=== PATIENT | male | born 1950 | race Caucasian/White ===

== ENCOUNTER 2016-07-17 18:30 | Inpatient (IN) ==
--- NOTE | 2016-07-17 19:02 | PROVIDER DOCUMENTATION ---
HPI-General Adult - General Chief Complaint: Shortness of Breath Stated Complaint: COUGH, CONGESTION Time Seen by Provider: 07/17/16 19:00 Source: patient Allergies/Adverse Reactions: Patient Allergies Allergy/AdvReac Type Severity Reaction Status Date / Time morphine Allergy Severe Hallucinati Verified 06/23/16 13:18 ons aspirin Allergy ABDOMINAL Verified 06/23/16 13:18 PAIN Home Medications: Esomeprazole [Nexium] 40 mg PO DAILY 02/01/16 Mirtazapine 15 mg PO DAILY 02/01/16 Thiamine Mononitrate [Vitamin B-1] 100 mg PO DAILY 02/01/16 Trazodone [Desyrel] 50 mg PO QHS 02/01/16 Dronedarone HCl [Multaq] 400 mg PO DAILY 05/29/16 Hydrocodone/Acetaminophen [[place] 10-325 Tablet] 1 each PO Q4H PRN PRN 06/23/16 - History of Present Illness -Gen Adult Nature of Presenting Problems: 65 y/o m presents to the ed with SOB. per pt he has been sob all day. pt has hx of multiple respiratory issues. pt does have stage 4 lung CA and had a chemo treatment X 9 days ago. pt also reports he has had a cough with excessive sputum. pt denies any dizziness/headache. Quality of Pain: reports: none Severity: reports: mild Timing: reports: still present Associated Symptoms: reports: shortness of breath Similar Symptoms Previously?: No Recently seen or treated by another doctor?: No Review of Systems - Adult - REVIEW OF SYSTEMS - ADULT Constitutional: denies: chills, fever Respiratory: reports: cough, dyspnea on exertion, excessive sputum production, shortness of breath, wheezing. denies: chronic cough, hemoptysis Neurological: denies: dizziness/vertigo, headache/migraines Past History - Adult - PAST MEDICAL HISTORY-ADULT Review of Records: reports: Old Records Reviewed, Nursing Assessment Review, Medications Reviewed Major Childhood Illnesses: reports: denies history Cardiovascular: reports: CAD, HTN, [place] Respiratory: reports: asthma, COPD, cancer (adenocarcinoma of the lung, stage IV ) Gastrointestinal: reports: GERD Genitourinary: reports: denies history Musculoskeletal: reports: denies history Neurological: reports: CVA. denies: stroke deficits Endocrine/Immune: reports: denies history Other Conditions: reports: denies history - PRIOR SURGERIES/PROCEDURES Surgical/Procedure History: reports: appendectomy, cholecystectomy, indwelling device (picc, PEG), hernia repair, back/neck - IMMUNIZATION STATUS Childhood Immunizations: See Nurse Assessment Flu Vaccine: See Nurse Assessment - FAMILY HISTORY Family History: reviewed, not pertinent - SOCIAL HISTORY Smoking: greater than 1 pack/day Substance Use: none/never Alcohol Use Frequency: never Physical Exam-General - PHYSICAL EXAM-ADULT Initial Vital Signs Reviewed: Yes - CONSTITUTIONAL General Appearance: alert, no apparent distress - EYES Eyes: PERRL/EOMI, pink conjunctivae, fundi clear, no AV nicking - HEAD, EARS, NOSE, MOUTH & THROAT HENMT: normocephalic/atraumatic, moist mucous membranes, normal ENT inspection - NECK Neck: non-tender, full range of motion, supple - RESPIRATORY Respiratory: chest non-tender, decreased breath sounds (bi-lateral), wheezing - CARDIOVASCULAR Cardiovascular: normal peripheral pulses, regular rate, rhythm - GASTROINTESTINAL (ABDOMEN) Abdominal Exam: normal bowel sounds, non tender, soft - LYMPHATIC Lymphatic: no adenopathy - MUSCULOSKELETAL Back Exam: normal inspection - SKIN Integumentary: normal color, normal turgor, warm/dry - PSYCHIATRIC Psych/Mental Status: normal mood/affect, normal thought content, normal thought process, oriented x 3 Progress - PLAN OF CARE/RESULTS Progress/Plan/Lab Results: plan of care: labs, imaging Laboratory Tests 07/17/16 07/17/16 07/17/16 19:14 19:25 19:25 WBC 2.58 L RBC 2.60 L Hgb 8.4 L Hct 25.2 L MCV 96.9 MCH 32.3 H MCHC 33.3 RDW Std Deviation 13.4 Plt Count 162 MPV 9.8 Immature Gran % (Auto) 0.0 Neut % (Auto) 58.9 Lymph % (Auto) 26.0 [place] % (Auto) 12.4 H Eos % (Auto) 1.9 Baso % (Auto) 0.8 Immature Gran # (Auto) 0.00 Neut # (Auto) 1.52 Lymph # (Auto) 0.67 L [place]eman # (Auto) 0.32 Eos # (Auto) 0.05 Baso # (Auto) 0.02 Specimen Type ARTERIAL Sample Site R BRACHIAL pH 7.44 pCO2 34 L pO2 107 H HCO3 24.3 Base Excess -0.8 Oxyhemoglobin 94.8 L ABG O2 Sat (Calculated) 11.5 L ABG O2 Saturation 99.2 ABG Carboxyhemoglobin 2.10 ABG Methemoglobin 2.2 H Don Test YES A-a O2 Difference 50.0 Total Hemoglobin 8.5 L Lactate 0.80 Liter Flow 2.0 Blood Gas Modality CANNULA FiO2 % 28.0 Sodium Potassium Chloride Carbon Dioxide Anion Gap BUN Creatinine Estimated GFR/1.73 m2 BUN/Creatinine Ratio Glucose Calculated Osmolality Calcium Total Bilirubin AST ALT Alkaline Phosphatase Total Protein Albumin Globulin Albumin/Globulin Ratio Plasma Lactate 1.0 07/17/16 20:46 WBC RBC Hgb Hct MCV MCH MCHC RDW Std Deviation Plt Count MPV Immature Gran % (Auto) Neut % (Auto) Lymph % (Auto) [place] % (Auto) Eos % (Auto) Baso % (Auto) Immature Gran # (Auto) Neut # (Auto) Lymph # (Auto) [place]eman # (Auto) Eos # (Auto) Baso # (Auto) Specimen Type Sample Site pH pCO2 pO2 HCO3 Base Excess Oxyhemoglobin ABG O2 Sat (Calculated) ABG O2 Saturation ABG Carboxyhemoglobin ABG Methemoglobin Don Test A-a O2 Difference Total Hemoglobin Lactate Liter Flow Blood Gas Modality FiO2 % Sodium 135 L Potassium 4.0 Chloride 100 Carbon Dioxide 23 L Anion Gap 12 BUN 23 H Creatinine 0.8 Estimated GFR/1.73 m2 > 60 BUN/Creatinine Ratio 29 Glucose 110 H Calculated Osmolality 274 Calcium 8.1 L Total Bilirubin 0.32 AST 26 ALT 34 Alkaline Phosphatase 60 Total Protein 5.9 L Albumin 3.2 L Globulin 2.7 Albumin/Globulin Ratio 1.2 Plasma Lactate Orders Category Date Time Status Intake and Output-Strict ORDERED Care 07/17/16 19:13 Active Notify MD/SHAHRZAD/REZA for exam NOW Care 07/17/16 19:13 Active Repeat Vital Signs .Blood Pressure Care 07/17/16 19:13 Active Repeat Vital Signs .Heart Rate Care 07/17/16 19:13 Active Repeat Vital Signs .Oxygen Saturation Care 07/17/16 19:13 Active Repeat Vital Signs .Respiratory Rate Care 07/17/16 19:13 Active Repeat Vital Signs .Temp Care 07/17/16 19:13 Active CHEST-PORTABLE [RAD] Stat Exams 07/17/16 20:34 Taken ABG [RESP] Routine Lab 07/17/16 19:14 Completed BLOOD CULTURE [BLDCUL] Stat Lab 07/17/16 19:28 Results CBC WITH ELECTRONIC DIFF [HEME] Stat Lab 07/17/16 19:25 Completed CMP [COMPREHENSIVE METABOLIC PANEL] [CHEM] Stat Lab 07/17/16 20:46 Completed LACTATE, PLASMA [CHEM] Timed Lab 07/17/16 19:25 Completed 0.9% Sodium Chloride Inj [Ns] 1,000 ml Med 07/17/16 19:12 Discontinued IV 999 mls/hr 0.9% Sodium Chloride Inj [Ns] 1,000 ml Med 07/17/16 19:12 Discontinued IV As Directed 0.9% Sodium Chloride Inj [Ns] 500 ml Med 07/17/16 19:15 Active IV 999 mls/hr Vital Signs - 24 hr 07/17/16 18:40 Temperature 98.7 F Pulse Rate 53 L Respiratory 20 Rate Blood Pressure 102/72 O2 Sat by Pulse 53 L Oximetry - EKG 1 Time of EKG reading by physician:: 19:28 EKG Read and Signed by:: Wale Lazcano Rate: 85 Rhythm: sinus rhythm w/marked sinus arrythmia - XRAY 1 XRAY Study: Chest XRAY Interpretation: no significate changes from prior - CONSULTS/PCP/HOSPITALIST Notification #1 *Consult/PCP/Hospitalist*: Dr. Hopkins Time Discussed: 22:20 Consult Disposition: other (transfer to [facility]) Departure - Departure Time of Disposition Order: 22:13 DIAGNOSIS: Symptomatic anemia Lung cancer Qualifiers: Laterality: unspecified laterality Lung location: unspecified part of lung Qualified Code(s): C34.90 - Malignant neoplasm of unspecified part of unspecified bronchus or lung COPD (chronic obstructive pulmonary disease) Qualifiers: COPD type: unspecified COPD Qualified Code(s): J44.9 - Chronic obstructive pulmonary disease, unspecified Disposition: ADMITTED INPATIENT 09 Certified Medical Emergency: Emergent Condition: Stable Additional Instructions: ED Follow Up Instructions: You have been treated by a care provider in the Emergency Department. These instructions are being provided to you so you can have an understanding of how to care for yourself upon discharge. Upon discharge from the Emergency Department, you are responsible for making arrangements for follow-up care by a physician of your choice. Take all prescribed medications as directed. Return to the Emergency Department immediately for any new or worsening symptoms. You may call the Physician Referral phone number at [phone] to obtain a list of Physicians who are taking new patients. Referrals: None,PCP [Primary Care Provider] -
[2016-07-17] MEDS ORDERED: NS 1,000 ML IV ONE ×2 (19:12)
[2016-07-17 20:06] LABS: ALLEN TEST YES; BE -0.8 mmoll (-3.0-3.0); BLOOD TYPE ARTERIAL; DRAW SITE R BRACHIAL; METHB 2.2 % (0.0-1.5); O2(CT) 11.5 mL/dL (15.0-23.0); PCO2(98.6) 34 mmHg (35-45); PO2(98.6) 107 mmHg (60-100); SAMPLE BLOOD; SAO2 99.2 % (95.0-100.0); THB 8.5 g/dL (11.5-17.4); pH(98.6) 7.44 (7.35-7.45)
[2016-07-17 20:56] LABS: MODALITY CANNULA
[2016-07-17 20:59] LABS: BASO% 0.8 % (0.0-0.8); EOS# 0.05 X1000 (0.0-0.7); EOS% 1.9 % (0.0-10.0); HEMATOCRIT 25.2 % (42.0-52.0); HEMOGLOBIN 8.4 g/dL (14.0-18.0); LYMPH# 0.67 X1000 (1.2-3.4); MANUAL DIFF NEEDED? NO; MCH 32.3 PG (27-31); MCHC 33.3 g/dL (33-37); MCV 96.9 FL (81-99); MONO# 0.32 X1000 (0.11-0.59); MONO% 12.4 % (1.7-9.3); MPV 9.8 FL (7.4-10.4); NEUT% 58.9 % (42.2-75.2); PLT 162 X1000 (130-400)
[2016-07-17 21:31] LABS: AGAP 12; ALBUMIN 3.2 g/dL (3.5-5.0); ALKALINE PHOSPHATASE 60 U/L (32-122); BUN 23 mg/dL (8-22); CALCIUM 8.1 mg/dL (8.8-10.2); CHLORIDE 100 mmol/L (98-107); COSMO 274; GOT 26 U/L (10-34); GPT 34 U/L (10-44); SODIUM 135 mmol/L (136-145); TCO2 23 mmol/L (25-35); TOTAL BILIRUBIN 0.32 mg/dL (0.20-1.00); TOTAL PROTEIN 5.9 g/dL (6.3-8.3)
[2016-07-17] MEDS ORDERED: ZOFRAN IV PRN (23:01)
[2016-07-17] MEDS ORDERED: TYLENOL PO PRN (23:01)
[2016-07-17] MEDS ORDERED: DUONEB (A & A) INH PRN (23:01)
--- NOTE | 2016-07-17 23:42 | Diag Imaging Result Document ---
PROCEDURE NAME: CHEST-PORTABLE - 07/17/2016 SINGLE FRONTAL RADIOGRAPH OF THE CHEST: COMPARISON: 06/23/2016. FINDINGS: Right chest port is in stable position. There are increased interstitial markings throughout both lungs with a basilar predominance. This is actually very similar to the previous study. This probably represents a combination of mild interstitial edema and chronic interstitial fibrotic change. The lungs are clear otherwise. There is no definite pleural fluid collection identified. The lung apices are hyperlucent suggesting COPD, stable. Cardiac silhouette is unremarkable. IMPRESSION: Thickened interstitial markings very similar to the previous study as detailed above.
[2016-07-18] MEDS: NS 500 ML IV SCH ×5 (03:22→04:39)
[2016-07-18] MEDS ORDERED: BENADRYL IV ONE (03:23)
[2016-07-18] MEDS ORDERED: NS 1,000 ML ONE ×2 (03:41→18:05)
--- NOTE | 2016-07-18 05:11 | HISTORY AND PHYSICAL ---
CHIEF COMPLAINT: Worsening shortness of breath. HISTORY OF PRESENT ILLNESS: A 65-year-old, white male with stage IV lung cancer status post chemotherapy for 9 days, last day last . He also has advanced COPD and chronic pain. He presented to the ER complaining of worsening weakness, shortness of breath. Evaluated in the ER by Dr. Lazcano. His hemoglobin and hematocrit are now low, as well as his platelets, likely related to chemotherapy induced anemia. He has ordered to transfuse 2 units of packed red blood cells. Patient says he has a chronic cough productive of whitish sputum, though seems to be chronic. No fevers. No chills. He takes pain medications, breathing treatments. No home oxygen. He does not smoke anymore. Pleasant elder. Poor historian. History of present illness extended by son at bedside. Says patient has been more short of breath. Other than that, he feels pretty much at his baseline. His oncologist is Dr. Mendez, desktop support technician/oncologist. REVIEW OF SYSTEMS: No fevers. No chills. Positive fatigue. No double vision. No coryza. No rhinorrhea. No sore throat. Positive shortness of breath. Positive productive cough, whitish sputum. No chest pain. No palpitations. No worsening distal edema. No nausea , vomiting, or diarrhea. No hesitancy, urinary retention, or diminished output. No seizures or syncope. On chemotherapy, under care of desktop support technician/oncologist. No recurring infections. No reaction to anything recently. No change in medications. REVIEW OF SYSTEMS: Fourteen point review of systems as above. Other systems reviewed and otherwise negative. PAST MEDICAL HISTORY: Coronary artery disease, hypertension, history of [place], adenocarcinoma of the lung stage IV, COPD, old CVA without deficits. HOME MEDICATIONS: Nexium 40 mg p.o. daily, mirtazapine 50 mg p.o. daily, vitamin B1 100 mg p.o. daily, trazodone 50 mg p.o. at night, Multaq 400 mg p.o. daily, [place] 10/325 p.o. q.4 as needed. ALLERGIES: To morphine and aspirin. PAST SURGICAL HISTORY: Appendectomy, cholecystectomy, indwelling device, PICC line, PEG, hernia repair, and back and neck surgeries. FAMILY HISTORY: Hypertension. SOCIAL HISTORY: He was smoking up to 4 packs a day at the time but he quit a long time ago. No alcohol. No drugs. Lives with son at home. PHYSICAL EXAMINATION: GENERAL: Frail, elder, pale. Seems tired. VITAL SIGNS: Temperature 98.7 degrees, pulse 53, respiratory rate 20, blood pressure 102/72, saturating 53 on oxygen by nasal cannula that increased to 95. HEENT: The head is atraumatic and normocephalic. Pupils are reactive to light. Pale mucous membranes. Throat: No thrush. Mouth clear. NECK: No JVD. LUNGS: Scattered rhonchi. Prolonged expiratory phase. No crackles. No crepitus. HEART: S1, S2 present. Regular rate and rhythm. No murmurs, rubs, or gallops. ABDOMEN: Soft, nontender, nondistended. EXTREMITIES: No distal edema. No calf tenderness. NEUROLOGIC: Pleasant, elder. Muscle strength 5/5 in 4 limbs. Clear speech. Follows commands. PSYCHIATRIC: Proper. DIAGNOSTIC DATA: Chest x-ray shows thickened interstitial markings, very similar to prior study. No acute changes. LABS: White blood cell count of 2.58, with a hemoglobin of 8.4, hematocrit of 25.2, and platelets of 162,000. PH of 7.44, pCO2 34, PO2 107, bicarb 24.3, base excess of -0.8, oxyhemoglobin 94.8. Chemistry shows a sodium of 135, potassium of 4, chloride of 100, carbon dioxide 23, anion gap 12, BUN 23, creatinine 0.8, glucose 110, calculated osmolality 274, calcium 8.1. Total bilirubin 0.32, AST 26, ALT 34, alkaline phosphatase 60, total protein 5.9, albumin 3.2, globulin 2.7, plasma lactate 1. APPRECIATION AND PLAN: 1. Acute and symptomatic chemotherapy-induced anemia. 2. Advanced chronic obstructive pulmonary disease. 3. Stage IV lung cancer. 4. Other diagnoses: Hypotension, ex heavy smoker, coronary artery disease, history of myocardial infarction, old cerebrovascular accident with no significant sequela, gastroesophageal reflux disease. DISCUSSION: This is a middle-age, white male, older looking appearing with stage IV lung cancer. Had recent chemotherapy and now presents to ER with worsening shortness of breath. His baseline seems unchanged regarding his productive cough with whitish sputum and though he manifests worsening shortness of breath. Labs discussed with ER attending and I agree with need for transfusion of packed red blood cells secondary to symptomatic anemia, likely chemotherapy induced. Patient has denied any gross GI bleed. I discussed case with Dr. Mirza at [facility] [facility] that will accept transfer due to bed availability. We will use mechanical DVT prophylaxis secondary to severe symptomatic anemia, high risk for bleed and falls. We will continue also with breathing treatments as needed. He has been mckeon-cultured and we will follow up on this. He does not impress septic. His pressure is borderline low. I believe he needs blood and volume. For now, there is no reason to start IV antibiotics though. Rest of plan of care as per clinical development. MTDD
[2016-07-18] MEDS: VITAMIN B-1 PO SCH (08:49)
[2016-07-18] MEDS: NEXIUM PO SCH (08:49)
[2016-07-18] MEDS: MULTAQ PO SCH (08:49)
[2016-07-18] MEDS: REMERON PO SCH (08:51)
[2016-07-18 10:24] LABS: BASO% 0.8 % (0.0-0.8); EOS# 0.07 X1000 (0.0-0.7); EOS% 2.7 % (0.0-10.0); HEMATOCRIT 27.6 % (42.0-52.0); HEMOGLOBIN 9.3 g/dL (14.0-18.0); IMM GRAN# 0.01 X1000 (0.0-0.04); IMM GRAN% 0.4 % (0.0-0.5); LYMPH# 0.69 X1000 (1.2-3.4); LYMPH% 26.3 % (20.5-51.1); MANUAL DIFF NEEDED? YES; MCH 32.6 PG (27-31); MCHC 33.7 g/dL (33-37); MCV 96.8 FL (81-99); MONO% 15.3 % (1.7-9.3); MPV 8.8 FL (7.4-10.4); NEUT% 54.5 % (42.2-75.2); PLT 135 X1000 (130-400); RBC 2.85 XMIL (4.7-6.1)
[2016-07-18 10:36] LABS: AGAP 8; BUN 20 mg/dL (8-22); CHLORIDE 101 mmol/L (98-107); COSMO 271; SODIUM 134 mmol/L (136-145); TCO2 25 mmol/L (25-35)
[2016-07-18 12:16] LABS: LYMPHS 36 % (21-51); MONO 16 % (1-9)
[2016-07-18] MEDS: NORCO-10 PO PRN ×2 (14:29→22:29)
--- NOTE | 2016-07-18 15:48 | PROGRESS NOTE ---
DATE: 07/18/2016 SUBJECTIVE: The patient has no focal complaints. OBJECTIVE: Vital signs: Blood pressure 93/59, heart rate is 68, respiratory rate 18, temperature 97.9 degrees, 100% on 3 L. Cardiovascular: Regular rate and rhythm. Pulmonary: Bilateral breath sounds. Clear to auscultation. GI: Soft, nontender, nondistended. Bowel sounds are positive. Extremities: No clubbing or cyanosis. Lymphatics: No peripheral edema. LABORATORY DATA: White count 2.6, hemoglobin and hematocrit 9 and 27 after transfusion, platelets of 135,000. Chemistry is pretty much unremarkable. Sodium a little low at 134. PROBLEM LIST: 1. Symptomatic anemia. He does have coronary artery disease which I think we are going to have a higher threshold for keeping his hemoglobin and hematocrit closer to 10 and 30, but we will continue to follow. Two units of blood were ordered but I think only 1 was given. We will follow. I am going to monitor. I think at this point I am not going to give him anymore blood. 2. Putative infection. There was some concern over sepsis because he is hypotensive but I think that may be more related to just dehydration. He is having significant diarrhea. We will screen for C. difficile and follow. It is likely chemotherapy-induced diarrhea. Continue to follow very closely. I think Dr. Mendez has been consulted, actually not; not put in even though they talked to the physician last night. We will let the patient know or let Dr. Mendez or team know the patient is here. 3. Atrial fibrillation. Appears to be controlled. I am going to continue his Multaq alone and we will follow. Obviously hold any anticoagulation. We will Hemoccult his stool and monitor. Possible discharge in the next 1-2 days pending workup.
[2016-07-18] MEDS: DESYREL PO SCH (20:20)
[2016-07-18] MEDS: DUONEB (A & A) INH SCH ×3 (23:29→23:30)
[2016-07-19] MEDS: DUONEB (A & A) INH SCH ×4 (04:16→21:20)
--- NOTE | 2016-07-19 06:25 | EKG Report ---
Test Performed on : 07/17/2016 6:38:27 PM Test Reason : done in ED/No order in [employer] Blood Pressure : / mmHG Vent. Rate : 085 BPM Atrial Rate : 096 BPM P-R Int : 122 ms QRS Dur : 076 ms QT Int : 354 ms P-R-T Axes : 082 078 077 degrees QTc Int : 421 ms Sinus rhythm. with marked sinus arrhythmia. Otherwise normal ECG When compared with ECG of 29-MAY-2016 21:04, No significant change was found Unconfirmed Result
[2016-07-19 07:07] LABS: HEMOGLOBIN 9.2 g/dL (14.0-18.0); MCH 31.3 PG (27-31); MCHC 32.9 g/dL (33-37); MCV 95.2 FL (81-99); MPV 9.6 FL (7.4-10.4); RBC 2.94 XMIL (4.7-6.1)
[2016-07-19] MEDS: REMERON PO SCH (10:39)
[2016-07-19] MEDS: VITAMIN B-1 PO SCH (10:39)
[2016-07-19] MEDS: MULTAQ PO SCH (10:40)
[2016-07-19] MEDS: NEXIUM PO SCH (10:40)
[2016-07-19] MEDS: TESSALON PO PRN (13:12)
--- NOTE | 2016-07-19 14:10 | Diag Imaging Result Document ---
PROCEDURE NAME: CHEST-2 VIEWS - 07/19/2016 FRONTAL AND LATERAL CHEST, TWO VIEWS: COMPARISON: 07/17/2016. FINDINGS: No change in the right jugular line. No pneumothorax. There are increased interstitial markings in the mid and lower lungs likely representing a combination of fibrosis and underlying infiltrates. The heart is not enlarged. Increased AP diameter to the chest. No pleural effusions. IMPRESSION: 1. Emphysema. 2. Fibrosis. 3. Likely underlying infiltrates in the lung bases, particularly on the left.
[2016-07-19] MEDS ORDERED: LASIX IV ONE (14:12)
[2016-07-19 14:38] LABS: OCCULT BLOOD 1 NEGATIVE (NEGATIVE)
[2016-07-19 14:57] LABS: C DIFF ANTIGEN PL NEGATIVE (NEGATIVE); C DIFF TOXIN PL NEGATIVE (NEGATIVE)
--- NOTE | 2016-07-19 14:58 | PROGRESS NOTE ---
DATE: 07/19/2016 SUBJECTIVE: The patient complains of a nonproductive cough. He denies any chest pain, palpitations, or shortness of breath. OBJECTIVE: Vital Signs: Blood pressure is 102/63, with a heart rate of 85, respirations are 16, temperature is 98.1 degrees oral, with O2 saturations of 98-100% on 2 L nasal cannula. Cardiovascular: Regular rate and rhythm. S1 and S2 appreciated. Pulmonary: He has some wheezes scattered throughout with no increased work of breathing noted. Gastrointestinal: Abdomen is soft, nontender, nondistended with bowel sounds in all 4 quadrants. Extremities: No clubbing, cyanosis, or edema. Pulses are palpable x4. Calves are nontender. LABS: WBC is 2.18, with a hemoglobin of 9.2, hematocrit 28, platelets of 142,000. PROBLEM LIST: 1. Symptomatic anemia. Patient received 2 units of packed cells. Hemoglobin and hematocrit are stable, as stated above. Will continue to trend daily. 2. Diarrhea. The patient has significant chemotherapy-induced diarrhea. Dr. Mendez did call with an update on the patient. She did state that this has been chronic for quite some time and that the patient is noncompliant in taking his Lomotil or Imodium. She states that this has been worked up multiple times on an outpatient basis, having negative studies and negative for Clostridium difficile each time. This is controlled when he will take his medications. We will continue to follow. 3. Atrial fibrillation. The patient has been in sinus rhythm. We are continuing his Multaq. 4. Questionable fluid overload versus infiltrates. The patient did receive the 2 units of blood and he did begin to wheeze and he developed a cough. PA and lateral chest x-ray was taken, which per radiology read reveals likely underlying infiltrates in the lung bases, particularly on the left. Will give 40 of Lasix IV x1 as this is most likely fluid overload. We will trend labs in the morning and reassess. Dictated by REZA Warren for Joshua Mirza MD
[2016-07-19] MEDS: DESYREL PO SCH (21:46)
[2016-07-20] MEDS: DUONEB (A & A) INH SCH ×4 (03:23→21:54)
[2016-07-20] MEDS: NEXIUM PO SCH (06:22)
[2016-07-20 06:49] LABS: HEMATOCRIT 29.1 % (42.0-52.0); HEMOGLOBIN 9.7 g/dL (14.0-18.0); MCH 31.6 PG (27-31); MCHC 33.3 g/dL (33-37); MCV 94.8 FL (81-99); MPV 9.6 FL (7.4-10.4); RBC 3.07 XMIL (4.7-6.1)
[2016-07-20 07:21] LABS: AGAP 7; BUN 11 mg/dL (8-22); CALCIUM 8.5 mg/dL (8.8-10.2); CHLORIDE 101 mmol/L (98-107); COSMO 269; POTASSIUM 3.6 mmol/L (3.5-5.1); SODIUM 135 mmol/L (136-145); TCO2 27 mmol/L (25-35)
[2016-07-20] MEDS: REMERON PO SCH (08:24)
[2016-07-20] MEDS: VITAMIN B-1 PO SCH (08:24)
[2016-07-20] MEDS: MULTAQ PO SCH (08:24)
--- NOTE | 2016-07-20 17:14 | PROGRESS NOTE ---
DATE: 07/20/2016 SUBJECTIVE: The patient states his cough is better. He denies any chest pain, palpitations, or shortness of breath. He does complain of being dizzy and feeling unsteady when walking. OBJECTIVE: Vital Signs: Blood pressure is 99/66 with a heart rate of 84, respirations are 18, temperature is 98.1 oral with oxygen saturations of 96-97% on 3 L nasal cannula. Cardiovascular: Regular rate and rhythm. S1 and S2 appreciated. Pulmonary: He does have some scattered wheezes with no increased work of breathing noted. Gastrointestinal: Abdomen is soft, nontender, nondistended, with bowel sounds in all 4 quadrants. Extremities: No clubbing, cyanosis, or edema. Calves are nontender. Pulses are palpable x4. LABS: WBC is 2.03 with a hemoglobin 9.7, hematocrit 29.1, and platelets of 154. Sodium is 135, potassium 3.6, BUN 11, creatinine 0.7, with a glucose of 93. C. difficile toxin and antigen are negative. PROBLEM LIST: 1. Symptomatic anemia. Hemoglobin and hematocrit remaining stable. We will continue to trend. 2. Diarrhea. The patient does have a history of chemotherapy-induced diarrhea, although he has had only 2 bowel movements since being here. We will continue to follow. 3. Atrial fibrillation. He is in sinus rhythm. We are continuing his Multaq. DISPOSITION: We will continue to give the patient some gentle hydration and hopefully, encourage him to be out of bed more through the night with assistance and hopefully discharge home tomorrow. Dictated by REZA Warren for Seven Bautista MD
[2016-07-20] MEDS: TESSALON PO PRN (21:00)
[2016-07-20] MEDS: NORCO-10 PO PRN (21:00)
[2016-07-20] MEDS: DESYREL PO SCH (21:00)
[2016-07-21] MEDS: DUONEB (A & A) INH SCH ×2 (04:00→10:52)
[2016-07-21] MEDS: NEXIUM PO SCH (06:15)
[2016-07-21 07:38] VITALS: BP 124/69
[2016-07-21] MEDS: REMERON PO SCH (10:09)
[2016-07-21] MEDS: VITAMIN B-1 PO SCH (10:10)
[2016-07-21] MEDS: MULTAQ PO SCH (10:13)
[2016-07-21] MEDS ORDERED: HEPARIN ONE (11:54)
--- NOTE | 2016-07-21 13:43 | DISCHARGE SUMMARY ---
ADMISSION DATE: 07/17/2016 DISCHARGE DATE: 07/21/2016 DIAGNOSES: 1. Symptomatic anemia. 2. Chemotherapy-induced diarrhea, which is chronic. 3. Atrial fibrillation. 4. Advanced chronic obstructive pulmonary disease. 5. Stage IV lung cancer. 6. Gastroesophageal reflux disease. CONSULTATIONS: Dr. Naa Mendez MICROBIOLOGY: Blood cultures revealed no growth after 48 hours. Urine culture revealed no growth. Clostridium difficile antigen was negative. Clostridium difficile toxin was negative. Stool occult blood was negative. HOSPITAL COURSE: Mr. Lr presented as a transfer from [facility] with complaining of shortness of breath. He was found to be anemic. He was transfused 2 units of packed cells. He did have a productive cough with whitish sputum, which he and the family stated had been chronic for many, many years. He did have a room air saturation of 53% on admission, although he is on home O2. While wearing O2, his saturations have stayed it looks like 97% to 100%. He was afebrile throughout the admission with blood pressures that did range from 88 to 124 over 60s, an heart rates have stayed between 70 and 94. We did continue his home medications. I did talk with Dr. Mendez who stated that this was chronic for the patient, as he has chemotherapy- induced diarrhea, and he refuses to take his Lomotil or Imodium as instructed. She does state that she sees him weekly in the office and this has been an ongoing problem. She does state that his blood pressures ranging in the 90s to 1 teens are normal for him. We did check orthostatic vital signs, and the patient was asymptomatic having a lying pressure of 94/61 with a heart rate of 95, with the standing pressure of 116/65 with a heart rate of 98. PHYSICAL EXAMINATION: Cardiovascular: Regular rate and rhythm. S1 and S2 are appreciated. Pulmonary: He does have some scattered wheezes, although they are much less than yesterday. No increased work of breathing noted. Gastrointestinal: The abdomen is soft, nontender, nondistended with bowel sounds in all 4 quadrants. Extremities: No clubbing, cyanosis, or edema. Pulses are palpable x4. Calves are nontender. DISCHARGE VITAL SIGNS: Blood pressure is 111/65 with a heart rate of 96, respirations are 18, temperature is 97.9 degrees orally. DISCHARGE MEDICATIONS: Trazodone 50 mg every night at bedtime, vitamin B1 at 100 mg p.o. daily, mirtazapine 15 mg daily, [place] 10/325 every 4 hours p.r.n., Nexium 40 mg p.o. daily, Multaq 400 daily, Lomotil 2.5 mg daily p.r.n. FOLLOWUP: He is to follow up with Dr. Mendez in the office this week. He is to call her office today, and an appointment will be made. DISCHARGE ACTIVITY: As tolerated. DISCHARGE DIET: As tolerated. DISPOSITION: He is being discharged home in stable condition with family members. TIME SPENT: This is a greater than 30 minute discharge from 11:30 to 12:10. Dictated by REZA Warren for Seven Bautista MD
== END 2016-07-21 12:08 | disposition home health service (06) | DRG 812 ==
LOC: ED 18:30 → P.MEDSURG 23:36
PROVIDERS: ATTEND Family Medicine
PROC: 30233N1 Transfusion of Nonautologous Red Blood Cells into Peripheral Vein, Percutaneous Approach (ICD-10-PCS; principal; 2016-07-18)
DX: D64.81 Anemia due to antineoplastic chemotherapy (principal); I95.9 Hypotension, unspecified; K52.1 Toxic gastroenteritis and colitis; Z99.81 Dependence on supplemental oxygen; C34.90 Malignant neoplasm of unspecified part of unspecified bronchus or lung; E87.70 Fluid overload, unspecified; I48.91 Unspecified atrial fibrillation; J44.9 Chronic obstructive pulmonary disease, unspecified; E86.0 Dehydration; I25.10 Atherosclerotic heart disease of native coronary artery without angina pectoris; I10 Essential (primary) hypertension; I25.2 Old myocardial infarction; K21.9 Gastro-esophageal reflux disease without esophagitis; T47 Poisoning by, adverse effect of and underdosing of agents primarily affecting the gastrointestinal system; Z91.128 Patient's intentional underdosing of medication regimen for other reason; Z79.899 Other long term (current) drug therapy; Z87.891 Personal history of nicotine dependence; Z86.73 Personal history of transient ischemic attack (TIA), and cerebral infarction without residual deficits; Z82.49 Family history of ischemic heart disease and other diseases of the circulatory system; T45.1X5A Adverse effect of antineoplastic and immunosuppressive drugs, initial encounter
CPT/HCPCS: 36415; 71010; 71020; 80048; 80053; 82270; 82805; 83605; 85025; 85027; 86850; 86900; 86901; 86920; 87040; 87088; 87324; 87449; 93005; 94640; 94761; 99285; J1200; J1940; J2405; J7030; P9016; 97116-GP

== ENCOUNTER 2016-11-28 06:01 | Inpatient (IN) ==
[~2016-11-28 06:01] MED LIST: ATIVAN IV ONE
[2016-11-28] MEDS ORDERED: ATIVAN IV ONE (06:16)
[2016-11-28] MEDS ORDERED: CEREBYX IV ONE ×2 (06:16→07:00)
[2016-11-28] MEDS ORDERED: QUELICIN IV ONE (06:22)
--- NOTE | 2016-11-28 06:27 | PROVIDER DOCUMENTATION ---
HPI-Neurological Disorder - General Chief Complaint: Seizure Stated Complaint: siezure activity Time Seen by Provider: 11/28/16 06:13 Source: EMS Unable to obtain history due to:: other (son not here on arrival) Allergies/Adverse Reactions: Patient Allergies Allergy/AdvReac Type Severity Reaction Status Date / Time morphine Allergy Severe Hallucinati Verified 06/23/16 13:18 ons aspirin Allergy ABDOMINAL Verified 06/23/16 13:18 PAIN Home Medications: Home Medication List Medication Instructions Recorded Confirmed Last Taken Type Esomeprazole [Nexium] 40 mg PO DAILY 02/01/16 07/30/16 07/09/16 History Mirtazapine 15 mg PO DAILY MDD 15mg 02/01/16 07/30/16 07/08/16 History Thiamine Mononitrate [Vitamin B-1] 100 mg PO DAILY 02/01/16 07/30/16 07/09/16 History Trazodone [Desyrel] 50 mg PO QHS 02/01/16 07/30/16 07/08/16 History Dronedarone HCl [Multaq] 400 mg PO DAILY 05/29/16 07/30/16 07/09/16 History Hydrocodone/Acetaminophen [[place] 1 each PO Q4H PRN PRN 06/23/16 07/30/16 History 10-325 Tablet] Diphenoxylate/Atropine [Lomotil] 2.5 mg PO DAILY PRN PRN MDD 8 per 07/19/16 Unknown History day - History of Present Illness-Neuro Nature of Presenting Problem: EMS called for pt found unresponsive. They witnessed sev brief episodes of sz activity en route. On arrival here, pt with sonorous breathing, eyes deviated to R. pupils fixed midpoint. He has hx of lung CA, no previous seizures had another sz just after arrival, involved L extremities Associated Symptoms: reports: seizures Similar Symptoms Previously?: No Recently seen or treated by another doctor?: Yes (Chemo) - Seizure First time to have a seizure?: Yes Witnessed seizure?: Yes (per EMS) Episode details: reports: unknown duration, unknown number Episode Frequency: no prior episodes Status Epilepticus: Yes (is not alert) Preceding symptoms/context:: other (hx of lung CA) Character of Seizure: reports: shaking in one area (LUE) Post-ictal Symptoms: reports: other (somulent) Review of Systems - Adult - REVIEW OF SYSTEMS - ADULT ROS:: unobtainable per condition Constitutional: reports: no symptoms reported Neurological: reports: seizure Past History - Adult - PAST MEDICAL HISTORY-ADULT Review of Records: reports: Medications Reviewed Major Childhood Illnesses: reports: denies history Cardiovascular: reports: CAD, HTN, PA Respiratory: reports: asthma, COPD, cancer (adenocarcinoma of the lung, stage IV ) Gastrointestinal: reports: GERD Genitourinary: reports: denies history Musculoskeletal: reports: denies history Neurological: reports: CVA. denies: stroke deficits Endocrine/Immune: reports: denies history Other Conditions: reports: denies history - PRIOR SURGERIES/PROCEDURES Surgical/Procedure History: reports: appendectomy, cholecystectomy, indwelling device (picc, PEG), hernia repair, back/neck - IMMUNIZATION STATUS Childhood Immunizations: See Nurse Assessment Flu Vaccine: See Nurse Assessment - FAMILY HISTORY Family History: reviewed, not pertinent Physical Exam- Neurological - Physical Exam-Neuro Initial Vital Signs Reviewed: Yes General Appearance: obtunded Eye Exam: bilateral eye: PERRL, abnormal EOM (eyes deviated to R), other (eyes deviated to R, later to L, pupils fixed, midpoint) HENMT: normocephalic/atraumatic, moist mucous membranes, normal ENT inspection, pharynx normal Head Injury: no evidence of injury Neck: normal inspection Respiratory: lungs clear, other (coarse BS bilat) Cardiovascular: normal peripheral pulses, regular rate, rhythm, no edema, no gallop Abdominal Exam: non tender, soft Peripheral Pulses: radial (R): 4+, radial (L): 4+ Extremity: non-tender deputy bailiff Exam: other (pt is post ictal, cannot test) Motor/Sensory: other (post ictal, cannot test) Neurologic: other (post ictal/Ativan, cannot test) Integumentary: normal color, normal turgor, warm/dry Psych/Mental Status: other (sedated) Progress - PLAN OF CARE/RESULTS Progress/Plan/Lab Results: Vital Signs - 8 hr 11/28/16 09:57 11/28/16 10:24 Pulse Rate 83 78 Respiratory Rate 18 19 Blood Pressure 109/80 115/82 O2 Sat by Pulse Oximetry 100 100 Laboratory Results - last 24 hr 11/28/16 11/28/16 11/28/16 06:10 06:10 06:10 WBC 8.35 RBC 3.82 L Hgb 12.2 L Hct 38.8 L MCV 101.6 H MCH 31.9 H MCHC 31.4 L RDW Std Deviation 13.5 Plt Count 132 MPV 12.4 H Immature Gran % (Auto) 0.2 Neut % (Auto) 43.5 Lymph % (Auto) 43.5 [place] % (Auto) 5.7 Eos % (Auto) 6.0 Baso % (Auto) 1.1 H Immature Gran # (Auto) 0.02 Neut # (Auto) 3.63 Lymph # (Auto) 3.63 H [place] # (Auto) 0.48 Eos # (Auto) 0.50 Baso # (Auto) 0.09 PT 10.1 INR 0.96 PTT (Actin FS) 28.0 Sodium 141 Potassium 4.6 Chloride 94 L Carbon Dioxide 17 L Anion Gap 30 BUN 28 H Creatinine 1.0 Estimated GFR/1.73 m2 > 60 BUN/Creatinine Ratio 28 Glucose 140 H POC Glucose Calculated Osmolality 289 Calcium 9.9 Total Bilirubin 0.28 AST 23 ALT 16 Alkaline Phosphatase 61 Total Protein 7.1 Albumin 3.8 Globulin 3.3 Albumin/Globulin Ratio 1.2 11/28/16 06:33 WBC RBC Hgb Hct MCV MCH MCHC RDW Std Deviation Plt Count MPV Immature Gran % (Auto) Neut % (Auto) Lymph % (Auto) [place] % (Auto) Eos % (Auto) Baso % (Auto) Immature Gran # (Auto) Neut # (Auto) Lymph # (Auto) [place] # (Auto) Eos # (Auto) Baso # (Auto) PT INR PTT (Actin FS) Sodium Potassium Chloride Carbon Dioxide Anion Gap BUN Creatinine Estimated GFR/1.73 m2 BUN/Creatinine Ratio Glucose POC Glucose 168 H Calculated Osmolality Calcium Total Bilirubin AST ALT Alkaline Phosphatase Total Protein Albumin Globulin Albumin/Globulin Ratio Orders Category Date Time Status Admit - [facility] - [facility] Routine AdmDCTranf 11/28/16 11:06 Ordered Activity - Strict Bedrest ORDERED Care 11/28/16 11:06 Active Nursing- MD Consult Request ROUTINE Care 11/28/16 11:06 Completed Restraint/Seclusion Initiat NV NOW Care 11/28/16 09:07 Active Vital Signs Order ROUTINE Care 11/28/16 11:06 Active Physician/Provider Consults Routine Cons 11/28/16 09:08 Ordered NPO Diet 11/28/16 09:05 Active CHEST/ABD TUBE PLACEMENT [RAD] Stat Exams 11/28/16 06:05 Completed HEAD W/O CONTRAST [CT] Stat Exams 11/28/16 06:14 Completed CBC WITH DIFF [HEME] Stat Lab 11/28/16 06:10 Completed COMPREHENSIVE METABOLIC PANEL [CHEM] Stat Lab 11/28/16 06:10 Completed PROTIME WITH INR [COAG] Stat Lab 11/28/16 06:10 Completed PTT [COAG] Stat Lab 11/28/16 06:10 Completed 0.9% Sodium Chloride Inj [Ns] 80 ml Med 11/28/16 06:30 Discontinued Midazolam [Versed] 100 mg IV As Directed Dronedarone [Multaq] Med 11/28/16 11:06 Active 400 mg PO DAILY Fosphenytoin [Cerebyx] Med 11/28/16 06:16 Discontinued 1,200 mg IV NOW ONE Fosphenytoin [Cerebyx] Med 11/28/16 18:00 Active 150 mg IV Q12H Fosphenytoin [Cerebyx] 1,200 mg Med 11/28/16 07:00 Discontinued 0.9% Sodium Chloride Inj [Ns] 50 ml IV ONCE Lorazepam [Ativan] Med 11/28/16 06:00 Discontinued 2 mg IV NOW ONE Lorazepam [Ativan] Med 11/28/16 06:16 Discontinued 4 mg IV NOW ONE Lorazepam [Ativan] Med 11/28/16 07:05 Discontinued 6 mg .ROUTE .STK-MED ONE Midazolam [Versed] Med 11/28/16 08:54 Discontinued 4 mg IV NOW ONE Midazolam [Versed] Med 11/28/16 08:45 Discontinued 5 mg .ROUTE .STK-MED ONE Ondansetron [Zofran] Med 11/28/16 11:06 Active 4 mg IV Q4H PRN PRN Pantoprazole [Protonix] Med 11/28/16 11:06 Active 40 mg IV Q24H Sodium Chloride 0.9% Med 11/28/16 11:06 Active 10 ml INJ DIRECTED Succinylcholine [Quelicin] Med 11/28/16 06:22 Discontinued 140 mg IV NOW ONE Succinylcholine [Quelicin] Med 11/28/16 07:02 Discontinued 200 mg .ROUTE .STK-MED ONE Ventilator Order Stat Oth 11/28/16 06:14 Active Transfer/Admit Order [TRANSFER] Routine Transfer 11/28/16 09:03 Completed Result Diagrams: 11/28/16 06:10 11/28/16 06:10 - REASSESSMENT Reassessment #1 Time Reassessed: 07:25 (resting comfortably. Son @ bedside, says sees Dr Contreras) Status: improving - EKG 1 Time of EKG reading by physician:: 06:36 EKG Read and Signed by:: Phil Bishop EKG Interpretation (*Must complete 3 of following elements*): Normal Rate: 121 Rhythm: sinus tach - CT/MRI 1 CT Study: Head Impression: Abnormal CT Results: mult new intracranial masses, largest is in R cerebellum, 5.4 cm. Rec MRI - CONSULTS/PCP/HOSPITALIST Notification #1 *Consult/PCP/Hospitalist*: Mirela Time Discussed: 07:29 Consult Disposition: Will see in ED Departure - Departure Time of Disposition Decision: 07:26 DIAGNOSIS: New onset seizure, Brain metastases Metastatic lung carcinoma Qualifiers: Laterality: unspecified laterality Qualified Code(s): C78.00 - Secondary malignant neoplasm of unspecified lung Disposition: ADMITTED INPATIENT 09 Certified Medical Emergency: Emergent Condition: Fair - Critical Care Note This patient required my direct & personal management of CC.: Yes Total Time (mins): 35 Critical Care Statement: This patient required my direct personal management to treat or rule out processes, the absence of which, could potentiallly result in sudden, clinically significant life or limb threatening deterioration.
[2016-11-28 06:38] LABS: MANUAL DIFF NEEDED? NO
[2016-11-28 06:42] LABS: BASO% 1.1 % (0.0-0.8); HEMATOCRIT 38.8 % (42.0-52.0); HEMOGLOBIN 12.2 g/dL (14.0-18.0); IMM GRAN# 0.02 X1000 (0.0-0.04); IMM GRAN% 0.2 % (0.0-0.5); LYMPH# 3.63 X1000 (1.2-3.4); LYMPH% 43.5 % (20.5-51.1); MCH 31.9 PG (27-31); MCHC 31.4 g/dL (33-37); MCV 101.6 FL (81-99); MONO# 0.48 X1000 (0.11-0.59); MONO% 5.7 % (1.7-9.3); MPV 12.4 FL (7.4-10.4); NEUT% 43.5 % (42.2-75.2); PLT 132 X1000 (130-400); RBC 3.82 XMIL (4.7-6.1)
[2016-11-28] MEDS: VERSED 100 MG in NS 80 ML IV SCH ×3 (06:50→09:10)
[2016-11-28 06:52] LABS: INR 0.96; PROTIME 10.1 Seconds (9.2-11.7)
[2016-11-28] MEDS ORDERED: NS IV ONE (07:00)
[2016-11-28] MEDS ORDERED: QUELICIN ONE (07:02)
[2016-11-28] MEDS ORDERED: ATIVAN ONE (07:05)
[2016-11-28 07:13] LABS: AGAP 30; ALBUMIN 3.8 g/dL (3.5-5.0); ALKALINE PHOSPHATASE 61 U/L (32-122); BUN 28 mg/dL (8-22); CALCIUM 9.9 mg/dL (8.8-10.2); CHLORIDE 94 mmol/L (98-107); COSMO 289; GOT 23 U/L (10-34); GPT 16 U/L (10-44); POTASSIUM 4.6 mmol/L (3.5-5.1); SODIUM 141 mmol/L (136-145); TCO2 17 mmol/L (25-35); TOTAL BILIRUBIN 0.28 mg/dL (0.20-1.00); TOTAL PROTEIN 7.1 g/dL (6.3-8.3)
--- NOTE | 2016-11-28 07:51 | Diag Imaging Result Doc PS360 ---
EXAM: HEAD W/O CONTRAST HISTORY: new SZ TECHNIQUE: CT of the head without contrast with dose reduction (clarity.) COMMENT: There is abnormal lucency present in the cerebellum particularly the right cerebellar hemisphere. There are probably three separate peripheral masses on the right each measuring over a centimeter in diameter. This was not present on 02/01/2016. There is a focus of hyperdensity in the subependymal white matter of the posterior right parietal lobe measuring 11 mm in diameter. There is a ringlike lesion adjacent to the frontal horn of the left frontal lobe on image 29 measuring 11 mm. There is a smaller lesion in the right centrum semiovale on image 41 measuring 7 mm. There is a tiny subependymal nodule present on the left on image 37 measuring 5 mm. This may have been present previously. There is no evidence of hydrocephalus. The fourth ventricle is somewhat compressed by the right and left basilic cerebellar vasogenic edema and mass. This was not present at the time the previous study. There is no evidence of abnormal extra-axial fluid collection. Severe degenerative changes and postsurgical changes present at C1. There are severe hypertrophic changes in the occipital condyles particularly the right. IMPRESSION: Metastatic disease. Severe vasogenic edema in the right cerebellar hemisphere with mass effect compressing the fourth ventricle. Electronically signed by Ermias Diego 11/28/2016 7:49 AM
--- NOTE | 2016-11-28 08:22 | Diag Imaging Result Doc PS360 ---
EXAM: CHEST/ABD TUBE PLACEMENT HISTORY: tube placement TECHNIQUE: AP portable at 0615 COMMENT: There is an endotracheal tube with its tip of the thoracic inlet. The costophrenic angles are not included on the image. There is apparent pulmonary fibrosis which has not changed since 07/19/2016. IMPRESSION: Stable chest. Electronically signed by Ermias Diego 11/28/2016 8:19 AM
[2016-11-28] MEDS ORDERED: VERSED ONE (08:45)
[2016-11-28] MEDS ORDERED: VERSED IV ONE (08:54)
[2016-11-28] MEDS: DECADRON IV SCH ×2 (11:51→17:36)
[2016-11-28] MEDS: DIPRIVAN 1% 1,000 MG/100 ML BOTTLE IV SCH ×2 (11:51→17:23)
[2016-11-28] MEDS: MULTAQ PO SCH (11:51)
[2016-11-28] MEDS: PROTONIX IV SCH (11:51)
[2016-11-28] MEDS: SODIUM CHLORIDE 0.9% INJ SCH (11:51)
--- NOTE | 2016-11-28 12:14 | CONSULTATION ---
DATE OF CONSULTATION: 11/28/2009 REFERRING PHYSICIAN: Dr. Islas and Dr. Dietz. CHIEF COMPLAINT: Evaluation for respiratory failure. HISTORY OF PRESENTING ILLNESS: This is a 66-year-old man with metastatic lung cancer with brain metastasis presented today with seizures and was intubated. Eventually it was found out that he was DNR too but family changed their mind on site and he is now full code. PAST MEDICAL HISTORY: Stage IV lung cancer with brain metastasis, COPD, adenocarcinoma, [place], hypertension, coronary disease, and old CVA. PAST SURGICAL HISTORY: Hernia repair, back and neck surgery, cholecystectomy, appendectomy. SOCIAL HISTORY: Ex-smoker. Lives with his son at home. REVIEW OF SYSTEMS: As detailed in history of presenting illness, otherwise noncontributory. FAMILY HISTORY: Hypertension and COPD. ALLERGIES: Positive to morphine and aspirin. MEDICATIONS: In the hospital were reviewed including Versed, that was changed to Diprivan and fosphenytoin. Other medications reviewed. I added Decadron for his regimen. He is on Protonix and . PHYSICAL EXAMINATION: General: He is intubated in bed, sedated. Vital Signs: Noted. Head and Neck: Trachea midline. Endotracheal tube in place. Chest: Exam reduced entry. Cardiac: S1, S2. Abdomen: Nontender on examination. Extremities: No pedal edema. Neurological: Heavily sedated for the minute. He had seizures earlier per family in the ICU and before the sedation was fully implemented, he woke up and tried to extubated himself. LABS AND INVESTIGATIONS: Chest x-ray is pending. WBC is 8.3, hemoglobin 12.2, platelets 132,000. Creatinine 1.0. CBC and CMP noted. ABG is pending too. ASSESSMENT AND PLAN: This is a 66-year-old man with a past history of metastatic lung cancer and past medical history as above, brain metastasis, presented with seizures, respiratory failure, and as for now he is a full code per family. Continue assist control sedation, antiseizure medications, Decadron for reducing edema in the brain, CT head noted, and GI prophylaxis. DVT prophylaxis with boots and TEDs to avoid the risk of brain bleed. Daily labs and will discuss further with family. Discuss with nursing staff nursing staff and respiratory therapy. Thank you for the courtesy of this consult. cc: MD Sherif Dougherty MD
--- NOTE | 2016-11-28 12:55 | Diag Imaging Result Doc PS360 ---
EXAM: CHEST-1 VIEW HISTORY: SOB TECHNIQUE: Semiupright portable at 1230 COMMENT: There is an endotracheal tube with its tip slightly below the thoracic inlet. The apices are not included on the study. The inspiration is less optimal than on 11/28/2016 at 0615. Considering this, there is been no significant change. IMPRESSION: Stable chest. Electronically signed by Ermias Diego 11/28/2016 12:52 PM
[2016-11-28 13:21] LABS: ALLEN TEST NO; BE 2.6 mmoll (-3.0-3.0); BLOOD TYPE ARTERIAL; DRAW SITE L BRACHIAL; O2(CT) 14.8 mL/dL (15.0-23.0); PCO2(98.6) 45 mmHg (35-45); PO2(98.6) 132 mmHg (60-100); SAMPLE BLOOD; SAO2 99.5 % (95.0-100.0); SRATE 12 BPM; THB 10.7 g/dL (11.5-17.4); TVOL 500 mL
[2016-11-28 13:22] LABS: MODALITY VENTILATOR
--- NOTE | 2016-11-28 15:12 | HISTORY AND PHYSICAL ---
CHIEF COMPLAINT: Seizures. HISTORY OF PRESENT ILLNESS: The patient is a 66-year-old white male followed by Dr. Islas, who suffers from metastatic lung cancer on the left of a mixed variety. He has been followed by Dr. Mendez and undergone radiation treatments and chemotherapy as his cancer has progressed and he has bony mets and lymph node involvement. The patient comes in this morning to the ER by ambulance after patient was found unresponsive. Family had noticed brief episodes of seizure activity en route. That was also noted by EMT personnel. Patient was postictal when he 1st came in with eyes deviated to the right, pupils fixed. Had additional seizures in the ER and was loaded Cerebyx per Dr. Bishop, ER physician. Patient intubated for airway control. Last seizure primarily involved movements of the left extremities. MEDICATIONS: Prior to admission are as listed by ER personnel as Lomotil p.r.n. diarrhea, Multaq 400 mg per PEG daily, Nexium 40 mg per PEG daily, Zenda 10 per PEG q.4 hours p.r.n. pain, Remeron 15 mg per PEG daily, B1 vitamin 100 mg per PEG daily, trazodone 50 mg per PEG at bedtime. ALLERGIES: To morphine and aspirin. PAST MEDICAL HISTORY: 1. 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 He is followed by Dr. Mendez. Apparently has been treated over the past year and a half. 2. Radiation-induced esophageal stricture requiring PEG placement. 3. Anemia, primarily of chronic disease and iron deficiency. Having received iron replacement IV per Dr. Mendez as he is intolerant to oral iron. 4. Depression. 5. COPD. 6. BPH. 7. Chronic low back pain. 8. History of gastritis. 9. History of paroxysmal atrial fibrillation, on Multaq. PAST SURGICAL HISTORY: Includes multiple back surgeries. Also placement of a port in the right upper chest and PEG placement. History of neck surgery. FAMILY HISTORY: Noncontributory. SOCIAL HISTORY: Patient lives in the local area. He has sisters that are with him here in the ER x2 and also 3 children; one is currently not, here coming from [place]. He has been a longstanding smoker. REVIEW OF SYSTEMS: As above. PHYSICAL EXAMINATION: GENERAL: Patient has been sedated with Versed. He is on the ventilator now. Tall, thin, white male. No seizure activity currently. HEENT: Sclerae clear. Edentulous. NECK: No LA or TMG. No bruits appreciated. CV: Tachycardia. Appears regular rhythm. LUNGS: Distant breath sounds. CTA. ABDOMEN: Nondistended. No mass or organomegaly. GENITOURINARY/RECTAL: Deferred. EXTREMITIES: No calf tenderness, cords, or edema. NEUROLOGIC: Again, patient is sedated with Versed. Was moving all extremities prior to sedation and was combative. DATA: CT head without contrast reveals metastatic disease particularly involving the right cerebellar hemisphere with mass effect compressing the 4th ventricle. Also noted subependymal white matter focus in the posterior right parietal lobe 11 mm in diameter. Ring-like lesion adjacent to the left frontal lobe. Smaller lesion in the right centrum semiovale. No hydrocephalus. Fourth ventricle compression again noted. Severe degenerative changes and postsurgical changes at C1. Hypertrophic changes in the occipital condyles particularly on the right. Chest x-ray reveals endotracheal tube in place in the thoracic inlet. Pulmonary fibrosis, unchanged from July 19. Labs show a white count of 8.35, hemoglobin 12.2, platelets of 132,000, neutrophils 43, lymphocytes 43. PT 10.1, INR 0.96, PTT 28. Sodium 141, potassium 4.6, chloride 94, CO2 17, BUN 28, creatinine 1.0, calcium 9.9, glucose 140, total bilirubin 0.28, AST 23, ALT 16, alkaline phosphatase 61, total protein 7.1, albumin 3.8. ASSESSMENT: 1. Seizure activity thought related to brain metastasis. 2. Stage IV left lung cancer, mixed variety, with metastasis to the lymph nodes, bones, and now brain. Followed by Dr. Mendez. 3. Percutaneous endoscopic gastrostomy tube in place due to a history of esophageal stricture related to radiation therapy of the lung cancer. 4. Anemia, iron deficiency and anemia of chronic disease requiring IV iron infusions per Dr. Mendez. 5. Depression. 6. Chronic obstructive pulmonary disease. 7. Benign prostatic hypertrophy. PLAN: At this time the patient will be transferred up to the ICU. I have spoken with his 2 sisters and 2 of his 3 children that are in attendance currently. They have been told by the patient they do not want long-term ventilator support and so they are contemplating removing the patient from the ventilator. At this point, the other daughter is en route so will move him to the ICU and get Dr. Moon to consult on the patient, manage the ventilator support presently, with consideration given to DNR status placement and removal of the mechanical ventilation, if that is what they desire later on today or in the next couple of days. I will continue Cerebyx that has been loaded by the physician for seizure control. He has received some Ativan and Versed. He will continue a Versed drip for combativeness and control while on the ventilator. Continue his Multaq. Will prophylax peptic ulcer disease with Protonix. cc: MD Sherif Peguero MD
[2016-11-28] MEDS: CEREBYX IV SCH (17:36)
[2016-11-29] MEDS: DECADRON IV SCH ×5 (00:37→23:12)
[2016-11-29] MEDS: DIPRIVAN 1% 1,000 MG/100 ML BOTTLE IV SCH ×2 (03:34→08:12)
[2016-11-29 04:35] LABS: ALLEN TEST YES; BE 2.2 mmoll (-3.0-3.0); BLOOD TYPE ARTERIAL; DRAW SITE R RADIAL; METHB 1.6 % (0.0-1.5); O2(CT) 16.4 mL/dL (15.0-23.0); PCO2(98.6) 32 mmHg (35-45); PO2(98.6) 184 mmHg (60-100); SAMPLE BLOOD; SAO2 99.4 % (95.0-100.0); SRATE 12 BPM; THB 11.8 g/dL (11.5-17.4); TVOL 500 mL
[2016-11-29 04:37] LABS: MODALITY VENTILATOR
[2016-11-29 05:28] LABS: EOS# 0.01 X1000 (0.0-0.7); EOS% 0.2 % (0.0-10.0); HEMATOCRIT 34.6 % (42.0-52.0); HEMOGLOBIN 11.6 g/dL (14.0-18.0); LYMPH# 0.46 X1000 (1.2-3.4); LYMPH% 8.2 % (20.5-51.1); MANUAL DIFF NEEDED? YES; MCH 31.9 PG (27-31); MCHC 33.5 g/dL (33-37); MCV 95.1 FL (81-99); MONO# 0.06 X1000 (0.11-0.59); MONO% 1.1 % (1.7-9.3); MPV 12.5 FL (7.4-10.4); NEUT% 90.5 % (42.2-75.2); PLT 126 X1000 (130-400); RBC 3.64 XMIL (4.7-6.1)
[2016-11-29 05:39] LABS: AGAP 14; BUN 26 mg/dL (8-22); CALCIUM 8.9 mg/dL (8.8-10.2); CHLORIDE 103 mmol/L (98-107); COSMO 284; POTASSIUM 4.5 mmol/L (3.5-5.1); SODIUM 139 mmol/L (136-145); TCO2 22 mmol/L (25-35)
[2016-11-29] MEDS: CEREBYX IV SCH ×2 (05:56→17:42)
--- NOTE | 2016-11-29 06:35 | EKG Report ---
Test Performed on : 11/28/2016 06:31:15 AM Test Reason : Blood Pressure : / mmHG Vent. Rate : 121 BPM Atrial Rate : 121 BPM P-R Int : 146 ms QRS Dur : 082 ms QT Int : 314 ms P-R-T Axes : 082 071 064 degrees QTc Int : 445 ms Sinus tachycardia. Otherwise normal ECG When compared with ECG of 17-JUL-2016 18:38, No significant change was found Unconfirmed Result
[2016-11-29 07:17] LABS: BANDS 7 % (0-1); LYMPHS 7 % (21-51); MONO 4 % (1-9)
--- NOTE | 2016-11-29 07:31 | PROGRESS NOTE ---
DATE: 11/29/2016 CHIEF COMPLAINT: Altered mental status. HISTORY OF PRESENT ILLNESS: Mr. Lr is a 66-year-old white gentleman, which I have not seen him in the office almost over 2 years for followup. Almost over a year since last discharge, patient never came to see me in the office. The patient is being followed up by oncologist and the pain clinic if I remember correctly. The patient was found unresponsive. There was question about seizure at home, and also in the ambulance. The patient brought to the emergency room. Evaluated by the ER physician. The patient was poorly-responsive. He was intubated to protect his airway, and admitted for further care. The patient does have metastatic lung cancer, COPD, gastritis, esophageal stricture, chronic pain history suggestive of BPH. The patient is on a ventilator, not able to give any history. The patient is sedated. PHYSICAL EXAMINATION: Vital Signs: Noted. Blood pressure is low-normal at times. The patient is afebrile. Neck: Supple. No JVD. Lungs: Decreased air entry at both the bases. Cardiovascular: S1 and S2 heard. Abdomen: Soft, globular. Bowel sounds present. PEG tube is in place. Central Nervous System: Patient is sedated, uncooperative for detailed exam. LABORATORY DATA: Done today, hemoglobin 11.6, hematocrit 34.6, platelet count 126, WBC 5.61. Blood gas: pH 7.5, pCO2 32, PO2 184. Electrolytes fairly benign. Sodium 139, blood sugar 127. LFT results reviewed. CT scan of the brain revealed metastatic disease, severe vasogenic edema in the right cerebellar hemisphere, with mass effect, compressing the 4th ventricle. CONSIDERATION: Metastatic lung cancer, seizure. Altered mental status could be due to metabolic encephalopathy. COPD, gastritis, history suggestive of esophageal stricture, chronic pain, BPH. Patient is on GI and DVT prophylaxis. Pain management. Ventilatory support. Close observation. Oncologist is regularly following patient, so I am going to consult Dr. Mendez, who knows the patient much more. Appreciate Dr. Moon's help managing patient. Continue rest of the treatment. I am going to talk to patient's family about code status. cc: Sherif Islas MD
--- NOTE | 2016-11-29 07:34 | Diag Imaging Result Doc PS360 ---
EXAM: CHEST-1 VIEW INDICATION: SOB COMPARISON: 11/28/2016 FINDINGS: Right chest port and ET tube are in stable position. There are mild increased interstitial markings bilaterally probably representing pulmonary fibrosis, perhaps with a component of mild interstitial edema. This is stable. No new consolidations are appreciated. Cardiac silhouette is stable. IMPRESSION: Essentially stable chest. Electronically signed by Al Ahmadi 11/29/2016 7:32 AM
[2016-11-29] MEDS: MULTAQ PO SCH (08:05)
[2016-11-29] MEDS ORDERED: DILAUDID IV PRN (09:24)
[2016-11-29] MEDS: PROTONIX IV SCH (11:15)
[2016-11-29] MEDS: SODIUM CHLORIDE 0.9% INJ SCH (11:15)
[2016-11-29] MEDS: DILAUDID IV PRN ×2 (15:41→18:53)
--- NOTE | 2016-11-29 18:32 | CONSULTATION ---
DATE OF CONSULTATION: 11/29/2016 CONSULTATION: Patient known to us with lung cancer. HISTORY OF PRESENT ILLNESS: Mr. Lr is a pleasant 66-year-old, male who is known to us as we are currently treating him for mixed small cell/non-small cell lung cancer. The patient has previously had several lines of chemotherapy and is currently receiving Navelbine. He is status post cycle 1, day 1 of Navelbine on 11/24/2016. Apparently, the patient was found to be unresponsive while at home. EMS was contacted and the patient was transferred to the hospital. En route to the hospital, the patient had some seizure activity in the ambulance. He then had some more seizure activity once in the emergency department. The patient was started on antiseizure medication. A CT of the head revealed him to have metastatic disease was severe vasogenic edema in the right cerebellar hemisphere with mass effect compressing the 4th ventricle. The patient was started on high-dose IV steroids. He was initially intubated in order to secure his airway. He has subsequently been extubated. Patient continues to have some altered mental status. PAST MEDICAL HISTORY: 1. Small cell/non-small cell lung cancer. 2. Radiation-induced esophageal strictures requiring PEG tube placement. Recent esophageal dilatation a couple of weeks back. 3. Anemia. 4. Depression. 5. COPD. 6. Benign prostatic hypertrophy. 7. Chronic pain. 8. History of gastritis. 9. History of paroxysmal atrial fibrillation. PAST SURGICAL HISTORY: 1. Multiple back surgeries. 2. Port placement on the right. 3. PEG tube placement. 4. Neck surgery. FAMILY HISTORY: Unable to obtain from patient as he is confused. I could not find any family history in the chart. SOCIAL HISTORY: Patient lives with his son. His son is rather supportive and shows up to several of his appointments. Patient continues to be a longstanding smoker. Denies any alcohol or illicit drug use previously. REVIEW OF SYSTEMS: As per above. The patient reports that he is doing okay today. Has no other complaints. PHYSICAL EXAMINATION: Vital Signs: Temperature 98 degrees, heart rate 89, respirations 18, blood pressure 114/82, O2 saturation 96% on non-rebreather. General: This is a male who is chronically ill appearing, lying in hospital bed. He is in no acute distress. Patient is alone and there is no one at bedside. Head: Normocephalic, atraumatic. Eyes: Pupils appear to be equal and round and reactive. Sclerae anicteric. Ears, nose, throat, neck, and mouth: Oral mucosa appears to be normal. Trachea is midline. Gross auditory acuity is intact. Cardiovascular: S1-S2 heard. No murmurs, gallops, rubs appreciated. Respiratory: Scattered wheezing and rhonchi throughout anteriorly. Gastrointestinal: Abdomen soft, nontender. Positive bowel sounds. Musculoskeletal: No obvious bony abnormalities. Extremities: No edema in bilateral lower extremities or bilateral upper extremities. Neurologic: Patient is alert. He is not oriented in regards to place or time. He is oriented to person. LABORATORY STUDIES: CT of the head, as per above. White blood cells 5.61, hemoglobin 11.6, hematocrit 34.6, platelets 126,000. Sodium 139, potassium 4.5, chloride 103, CO2 22, BUN 26, creatinine 0.9, glucose 127. ASSESSMENT/PLAN: 1. Mixed small cell/non-small cell lung cancer. Patient has several lines of chemotherapy previously. He most recently has been started on Navelbine and status post cycle 1, day 1 on 11/24/2016. Treatment will currently be on hold while the patient is in the hospital. 2. New brain metastasis found on computed tomography scan as per above. Continue on high doses of dexamethasone 4 mg q.6 hours to help with the edema. We will have to have a discussion on treatment going forward. The patient is now at least alert, not intubated. Continue the steroids as per above for now. 3. Altered mental status. Believed to be secondary to #2. Continue treatment as per #2. 4. Respiratory failure. Patient is not extubated. Continue management as per Pulmonology. 5. Pain. Currently well controlled with his Dilaudid. Patient is comfortable. 6. Seizure activity. Secondary to #2. Continue Cerebyx. 7. Disposition. We have previously talked with the patient and his son about hospice versus further treatment. The patient is not extubated and able to communicate. However, he still seems to be altered. We will have to have a discussion with the family as a whole, mainly with the son and the patient about treatment going forward. We will continue steroids as per above for now. Further recommendations will be made once Dr. Mendez sees the patient. We want to thank you for consulting us and allowing us to participate in Mr. Lr' care while he is here at [facility]. We will continue to follow along and adjust our treatment plan per his hospital course. Dictated by SHAHRZAD Post for Naa Mendez MD cc: MD Sherif Scruggs MD
[2016-11-30] MEDS: DILAUDID IV PRN ×5 (05:02→23:13)
[2016-11-30] MEDS: DECADRON IV SCH ×4 (05:03→23:14)
[2016-11-30] MEDS: CEREBYX IV SCH (05:14)
[2016-11-30] MEDS: ROCEPHIN 1 GM/NS 1 GM/50 ML IVPB IV SCH (06:11)
--- NOTE | 2016-11-30 06:38 | PROGRESS NOTE ---
DATE: 11/30/2016 SUBJECTIVELY: Mr. Lr is doing fairly well. I had lengthy discussion with the patient's family yesterday about his condition and prognosis and they requested DNR as per patient wishes. They requested to extubate the patient and we did. The patient is doing better. No high-grade fever or chills. The patient is tolerating food well. No nausea, vomiting. The patient does have cough with expectoration. No chest pain. No dysuria or hematuria. The patient does have Currie catheter. No typical chest pain. The patient does have chronic pain. Past medical history noted. OBJECTIVE: Vital Signs: Vital signs reviewed. Neck: Supple. No JVD. Lungs: Bilateral air entry present. Few basal crepitations. Occasional wheezing. CVS: S1 and S2 heard. Abdomen: Soft, globular. Bowel sounds present. PEG tube is in place. CORE DRIER: Alert, awake. Able to move all 4 limbs. LAB DATA: Done yesterday noted. ASSESSMENT AND PLAN: Overall patient is doing better. The patient admitted with acute respiratory failure, seizure, metastatic lung cancer. Does have chronic obstructive pulmonary disease and acute bronchitis, chronic pain, gastritis, history of esophageal stricture. I am going to get sputum, Gram stain and culture sensitivity, add antibiotics, continue steroid. I requested oncology consult for metastatic lung cancer. Senior Attorney following patient with us. I am going to transfer patient to step-down unit. Continue rest of the treatment. Pain management. PLAN: Overall plan discussed with the patient. I offered to talk to family but they are waiting for other family members. cc: Sherif Islas MD
[2016-11-30] MEDS: KEPPRA PO SCH ×2 (08:11→20:43)
[2016-11-30] MEDS: MULTAQ PO SCH (08:11)
[2016-11-30] MEDS ORDERED: TYLENOL PO PRN (09:22)
[2016-11-30] MEDS: PROTONIX IV SCH (12:03)
[2016-11-30] MEDS: SODIUM CHLORIDE 0.9% INJ SCH (12:03)
--- NOTE | 2016-11-30 12:25 | PROGRESS NOTE ---
DATE: 11/30/2016 SUBJECTIVE FINDINGS: Mr. Lr is lying in the hospital bed with family at bedside. He appears to be resting comfortably. He does report that he is not doing well today. He recalls talking with Dr. Gutierrez this morning but cannot recall his plan of care. OBJECTIVE FINDINGS: Vital Signs: Temperature 97.6 degrees, heart rate 73, respirations 24, blood pressure 101/68, O2 saturation 95% on room air. LABS: No new labs for today. PHYSICAL EXAM: CV: Regular rate and rhythm. S1, S2 heard. No murmurs, gallops, rubs appreciated. Respiratory: Patient has bilateral coarse breath sounds. He has some scant wheezing. Gastrointestinal: Abdomen is soft, nondistended. Positive bowel sounds. Musculoskeletal: No obvious bony abnormalities. Extremities: Patient has no pedal edema bilaterally. ASSESSMENT: 1. Mixed small cell, non-small cell lung cancer. Patient most recently started on Navelbine last week. He now has and a brain met. Appears that he is getting radiation therapy with Dr. Gutierrez. No chemo at this time. 2. Brain met on most recent CT resulting in seizure activity. Patient is going to receive radiation therapy per Dr. Gutierrez. He continues on Keppra now as per Dr. Islas. No further seizure activity. He also will continue on his high-dose steroids at 4 mg q.6 hours. 3. Pain. Continue IV Dilaudid p.r.n. Dictated by SHAHRZAD Post for Naa Mendez MD cc: MD Sherif Scruggs MD [facility]
[2016-11-30] MEDS: ZOFRAN IV PRN (14:39)
[2016-12-01] MEDS: DILAUDID IV PRN ×4 (04:10→20:25)
[2016-12-01] MEDS: ROCEPHIN 1 GM/NS 1 GM/50 ML IVPB IV SCH (06:07)
[2016-12-01] MEDS: DECADRON IV SCH ×3 (06:08→17:07)
--- NOTE | 2016-12-01 07:01 | PROGRESS NOTE ---
DATE: 12/01/2016 SUBJECTIVE: Mr. Lr is feeling better. No major headache. The patient does have chronic pain. No high-grade fever or chills. No typical chest pain or palpitations. Does have cough with scanty sputum production. No dysuria or hematuria. OBJECTIVE: Vital Signs: Reviewed. Neck: Supple. No JVD. Lungs: Bibasilar crepitations. Occasional wheezing. Cardiovascular: S1 and S2 heard. Abdomen: Soft, globular. Bowel sounds present. Extremities: No cyanosis, clubbing. No acute DVT. CARE COORDINATION MANAGER: Alert, awake. Able to move all 4 limbs. ASSESSMENT: 1. The patient is admitted with new onset seizure. Found to have metastatic lung cancer. The patient started radiation treatment. 2. Chronic obstructive pulmonary disease exacerbation and bronchitis. 3. Acute respiratory failure, status post intubation. 4. Gastritis. PLAN: I will talk to oncologist about the steroid dose. I am going to check appropriate labs. Planning to discharge patient home soon. Continue rest of the treatment. Seizure precautions. Overall plan discussed with the patient and he is in agreement. cc: Sherif Islas MD
[2016-12-01 07:11] LABS: MANUAL DIFF NEEDED? NO
[2016-12-01 07:16] LABS: HEMATOCRIT 35.4 % (42.0-52.0); HEMOGLOBIN 11.7 g/dL (14.0-18.0); IMM GRAN# 0.03 X1000 (0.0-0.04); IMM GRAN% 0.8 % (0.0-0.5); LYMPH# 1.08 X1000 (1.2-3.4); LYMPH% 28.3 % (20.5-51.1); MCH 31.9 PG (27-31); MCHC 33.1 g/dL (33-37); MCV 96.5 FL (81-99); MONO# 0.17 X1000 (0.11-0.59); MONO% 4.5 % (1.7-9.3); NEUT% 66.4 % (42.2-75.2); PLT 184 X1000 (130-400); RBC 3.67 XMIL (4.7-6.1)
[2016-12-01 07:32] LABS: AGAP 13; ALBUMIN 3.5 g/dL (3.5-5.0); ALKALINE PHOSPHATASE 57 U/L (32-122); BUN 24 mg/dL (8-22); CALCIUM 9.3 mg/dL (8.8-10.2); CHLORIDE 95 mmol/L (98-107); COSMO 274; GOT 16 U/L (10-34); GPT 16 U/L (10-44); SODIUM 135 mmol/L (136-145); TCO2 27 mmol/L (25-35); TOTAL BILIRUBIN 0.28 mg/dL (0.20-1.00); TOTAL PROTEIN 6.7 g/dL (6.3-8.3)
[2016-12-01] MEDS: KEPPRA PO SCH ×2 (08:30→20:25)
[2016-12-01] MEDS: CARAFATE LIQUID PO SCH ×2 (08:30→17:07)
[2016-12-01] MEDS: MULTAQ PO SCH (08:31)
[2016-12-01] MEDS: ZOFRAN IV PRN ×2 (08:59→16:26)
[2016-12-01] MEDS: PROTONIX IV SCH (11:26)
[2016-12-01] MEDS: SODIUM CHLORIDE 0.9% INJ SCH (11:26)
[2016-12-01] MEDS: DECADRON PO SCH (20:25)
[2016-12-02] MEDS: DILAUDID IV PRN ×3 (00:20→15:19)
[2016-12-02] MEDS: CARAFATE LIQUID PO SCH ×5 (00:20→14:02)
[2016-12-02] MEDS: ZOFRAN IV PRN (04:24)
[2016-12-02] MEDS: DECADRON PO SCH ×2 (06:32→14:02)
[2016-12-02] MEDS: ROCEPHIN 1 GM/NS 1 GM/50 ML IVPB IV SCH (06:33)
--- NOTE | 2016-12-02 07:35 | PROGRESS NOTE ---
DATE: 12/02/2016 SUBJECTIVE: Mr. Lr is feeling better. He does have cough with yellowish-greenish expectoration. No high-grade fever or chills. Denied any nausea or vomiting. Oral intake is fair. The patient is ambulating better. No typical chest pain. PHYSICAL EXAMINATION: Vital Signs: His vital signs noted. Patient is afebrile. Neck: Supple. No JVD. Lungs: Bibasilar crepitations. Occasional wheezing. CVS: S1 and S2 heard. Abdomen: Soft, globular. Bowel sounds present. ROD AND TUBE STRAIGHTENER: Alert, awake. Able to move all 4 limbs. LAB DATA: Done yesterday noted. CONSIDERATION: 1. Metastatic lung cancer. 2. Chronic obstructive pulmonary disease exacerbation. 3. Chronic low back pain. 4. Benign prostatic hypertrophy. 5. Acute bronchitis. PLAN: The patient is on IV antibiotics, steroid, bronchodilator care. The patient is getting radiation treatment. Will continue current treatment. Close observation. Overall plan discussed with the patient. He is in agreement. If clinical condition permits, we will plan discharging patient home today. cc: Sherif Islas MD
[2016-12-02] MEDS: MULTAQ PO SCH (08:04)
[2016-12-02] MEDS: KEPPRA PO SCH (08:04)
[2016-12-02] MEDS: SODIUM CHLORIDE 0.9% INJ SCH (11:00)
[2016-12-02] MEDS: PROTONIX IV SCH (11:00)
[2016-12-02] MEDS: DUONEB (A & A) INH SCH ×2 (11:01→16:32)
[2016-12-02 14:44] VITALS: BP 108/63
--- NOTE | 2016-12-02 18:11 | DISCHARGE SUMMARY ---
ADMISSION DATE: 11/28/2016 DISCHARGE DATE: FINAL DISCHARGE DIAGNOSES: 1. Acute respiratory failure. 2. New onset seizure. 3. Metastatic lung cancer with metastasis to the brain. 4. Chronic pain. 5. Benign prostatic hypertrophy. 6. Chronic obstructive pulmonary disease exacerbation. 7. Gastritis. 8. Esophagitis. 9. Paroxysmal atrial fibrillation. Mr. Lr is a 66-year-old, white gentleman admitted with altered mental status. The patient had new onset seizure. Brought to the emergency room. Evaluated by ER physician. CT scan did reveal new metastatic lesions to the brain. The patient was very weak and lethargic. He was intubated in the ER, admitted to ICU. The patient was started on steroid. His clinical condition improved and stabilized. The patient was successfully extubated. Family requested DNR 1 as per patient wishes. We extubated the patient. The patient tolerated it well. The patient started eating well. He did have cough and chest congestion. I started him on antibiotics. Pulmonary consult obtained with Dr. Moon. Oncology consult obtained with his oncologist Dr. Mendez. The patient started on radiation treatment. The patient is doing fairly well. The patient is tolerating food well. Ambulating well. No fever or chills. OBJECTIVE: Vital Signs: Vital signs stable. I did discuss with Dr. Mendez about the Decadron dose. The patient is eager to go home and I discharged him home today. LAB DATA: Revealed hemoglobin 11.7, hematocrit 35.4, WBC count 3.82, platelet count 184,000. Electrolytes fairly benign. CT scan of the brain did reveal metastatic disease, severe with edema in the right cerebellar hemisphere, with mass effect, compressing the 4th ventricle. Overall discharge condition satisfactory. Discussed smoking cessation. Take medication regularly. Continue radiation. Follow up with his oncologist. Follow up with me in a week time. The patient was started on Keppra. Continue pain medicine. Overall discharge plan discussed at length with the patient. He is in agreement. cc: Sherif Islas MD
--- NOTE | 2017-01-05 12:49 | CONSULTATION ---
DATE OF CONSULTATION: 11/29/2016 REASON FOR CONSULTATION: Brain metastasis. REFERRING PHYSICIAN: Dr. Naa Mendez. HISTORY OF PRESENT ILLNESS: Mr. Lr is a 66-year-old gentleman who was found at home unresponsive. He was thought to have had a seizure. He was admitted to the hospital and found to have brain metastasis on head CT. This was on 11/28/2016. He was found to have an abnormal lucency present in the cerebellum, particularly the right cerebellar hemisphere. There are probably 3 separate peripheral masses on the right, each measuring over a cm in diameter. This was not present in 2016 on his last scan. There was a focus of hyperdensity in the subependymal white matter of the posterior right parietal lobe measuring 11 mm in diameter. There are multiple other lesions scattered throughout the brain. I have been consulted for the consideration of whole brain radiation therapy. 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 MEDICATIONS: 1. Nexium. 2. Mirtazapine. 3. Thymine. 4. Trazodone. 5. Multaq. 6. Gypsum. 7. Lomotil. ALLERGIES: Morphine and aspirin. SOCIAL HISTORY: He is an ex smoker. FAMILY HISTORY: None significant. PHYSICAL EXAMINATION: Vital Signs: Per the hospital record. General: The patient is lying in bed and is feeling very dizzy and is having a difficult time staying awake to communicate. Neurologic: Exam was not possible due to the patient's level of sedation. Heart: Regular rate and rhythm. Lungs: Clear to auscultation bilaterally. ASSESSMENT AND PLAN: I agree with the recommendation for palliative radiation therapy to the brain. The patient voices his agreement with treatment. We discussed the risks and benefits of radiation, and the patient will be scheduled for simulation as soon as possible. cc: MD Sherif Ward MD
== END 2016-12-02 19:10 | disposition home or self-care (01) ==
LOC: SUPCPDRO → ED 06:01 → ICU 10:34 → 3N 11-30 09:41
PROVIDERS: ADMIT Internal Medicine; ATTEND Internal Medicine

== ENCOUNTER 2016-12-22 08:59 | Inpatient (IN) ==
--- NOTE | 2016-12-22 09:53 | Diag Imaging Result Doc PS360 ---
EXAM: HEAD W/O CONTRAST HISTORY: RAMEY TECHNIQUE: Dose reduction protocol COMPARISON: 11/28/2016 FINDINGS: No parenchymal hemorrhage. No epidural or subdural hematoma. No subarachnoid hemorrhage. No mass identified on this noncontrasted exam. No edema in the right cerebellum on the current exam. No effacement of the fourth ventricle. No hydrocephalus. Mild atrophy. No sinus opacification. IMPRESSION: No hemorrhage. No other abnormality identified on the current exam. Electronically signed by Chucho Mccauley 12/22/2016 9:51 AM
[2016-12-22] MEDS ORDERED: NS 1,000 ML IV ONE ×2 (10:17→12:00)
[2016-12-22] MEDS ORDERED: DILAUDID IV ONE (10:19)
[2016-12-22] MEDS ORDERED: ZOFRAN IV ONE (10:19)
--- NOTE | 2016-12-22 10:55 | Diag Imaging Result Doc PS360 ---
EXAM: CHEST-PORTABLE HISTORY: Lung cancer TECHNIQUE: Portable upright COMPARISON: 11/29/2016 FINDINGS: No change in the right jugular line. No pneumothorax. The lungs are well expanded. The heart is not enlarged. Mild increased interstitial markings believed to be fibrosis. Mild prominence to the right hilum inferiorly in the left hilum superiorly. This Is similar to the prior exam. No consolidation. No pleural effusions identified. IMPRESSION: Interval removal of the endotracheal tube, otherwise stable exam. Electronically signed by Chucho Mccauley 12/22/2016 10:53 AM
[2016-12-22 11:00] LABS: BASO% 0.1 % (0.0-0.8); EOS# 0.07 X1000 (0.0-0.7); HEMATOCRIT 33.7 % (42.0-52.0); HEMOGLOBIN 10.9 g/dL (14.0-18.0); LYMPH# 0.36 X1000 (1.2-3.4); LYMPH% 5.2 % (20.5-51.1); MANUAL DIFF NEEDED? NO; MCH 32.1 PG (27-31); MCHC 32.3 g/dL (33-37); MCV 99.1 FL (81-99); MONO# 0.46 X1000 (0.11-0.59); MONO% 6.7 % (1.7-9.3); MPV 10.6 FL (7.4-10.4); PLT 174 X1000 (130-400)
[2016-12-22 11:12] LABS: AGAP 12; ALBUMIN 3.1 g/dL (3.5-5.0); ALKALINE PHOSPHATASE 91 U/L (32-122); AMYLASE 790 U/L (20-200); BUN 28 mg/dL (8-22); CALCIUM 8.6 mg/dL (8.8-10.2); CHLORIDE 98 mmol/L (98-107); COSMO 281; GOT 30 U/L (10-34); GPT 50 U/L (10-44); POTASSIUM 4.1 mmol/L (3.5-5.1); SODIUM 136 mmol/L (136-145); TCO2 26 mmol/L (25-35); TOTAL BILIRUBIN 0.23 mg/dL (0.20-1.00); TOTAL PROTEIN 5.6 g/dL (6.3-8.3)
[2016-12-22 11:20] LABS: LIPASE 1167 U/L (13-60)
[2016-12-22 11:32] LABS: URINE CULTURE NEEDED? NO; URINE MICRO REVIEW NEEDED? NO; URINE SOURCE CLEAN CATCH
[2016-12-22 11:40] LABS: BILIRUBIN URINE NEGATIVE (NEGATIVE); BLOOD URINE NEGATIVE (NEGATIVE); COLOR YELLOW; GLUCOSE URINE NEGATIVE (NEGATIVE); LEUKOCYTES URINE NEGATIVE (NEGATIVE); NITRITE URINE NEGATIVE (NEGATIVE); PROTEIN URINE NEGATIVE (NEGATIVE); SP GRAVITY URINE 1.018; TURBIDITY URINE CLEAR (CLEAR); UROBILINOGEN URINE NORMAL (NORMAL)
[2016-12-22 11:41] LABS: UR EPITHELIAL CELLS <10 /HPF (<10); URINE BACTERIA NEGATIVE /HPF; URINE RBC <10 /HPF (<10); URINE WBC <10 /HPF (<10)
--- NOTE | 2016-12-22 12:00 | PROVIDER DOCUMENTATION ---
This chart was entered by Mayte Amezcua Scribe, acting as scribe for Joy Macias MD. HPI-Headache - General Chief Complaint: Headache Stated Complaint: RAMEY,BRAIN CANCER Time Seen by Provider: 12/22/16 09:33 Source: patient, family (son) Allergies/Adverse Reactions: Patient Allergies Allergy/AdvReac Type Severity Reaction Status Date / Time morphine Allergy Severe Hallucinati Verified 06/23/16 13:18 ons aspirin Allergy ABDOMINAL Verified 06/23/16 13:18 PAIN fentanyl Allergy HIVES Verified 12/22/16 10:20 Home Medications: Home Medication List Medication Instructions Recorded Confirmed Last Taken Type Esomeprazole [Nexium] 40 mg PO DAILY 02/01/16 12/22/16 11/28/16 09:00 History Mirtazapine 15 mg PO DAILY MDD 15mg 02/01/16 12/22/16 11/28/16 09:00 History 15mg Thiamine Mononitrate [Vitamin B-1] 100 mg PO DAILY 02/01/16 12/22/16 11/28/16 09 :00 History Trazodone [Desyrel] 50 mg PO QHS 02/01/16 12/22/16 11/27/16 21:00 History Dronedarone HCl [Multaq] 400 mg PO DAILY 05/29/16 12/01/16 11/28/16 09:00 History Diphenoxylate/Atropine [Lomotil] 2.5 mg PO DAILY PRN PRN MDD 8 per 07/19/16 Unknown History day Acetaminophen [Tylenol] 325 mg PO Q4H PRN PRN #0 tablet 12/02/16 Unknown Rx Albuterol 2.5MG/Ipratrop 0.5MG 3 ml INH RTQ6H neb 12/02/16 Unknown Rx [Duoneb (A & A)] CefUROXIME [Ceftin] 500 mg PO Q12HR #10 tablet 12/02/16 Unknown Rx Dexamethasone [Decadron] 4 mg PO Q8HR tablet 12/02/16 12/22/16 Unknown Rx Hydrocodone/Acetaminophen [Osyka 1 each PO Q8H PRN PRN #0 12/02/16 12/22/16 Rx 10-325 Tablet] Levetiracetam [Keppra] 500 mg PO BID tablet 12/02/16 12/22/16 Unknown Rx Sucralfate [Carafate Liquid] 1 gm PO Q6HR udc 12/02/16 12/22/16 Unknown Rx - History of Present Illness-Headache Nature of Presenting Problem: 66 y/o M presents to ED cc of headache. Son states pt has lung cancer and it has moved to his brain. Pt just finished 10 rounds of radiation treatment last Tuesday. Pt complains of headache and N/V. Pt wanting CT scan of head. Pt states he has to crush his pain pills up. Pt reports being low on his oxycodone. Pt is alert and oriented. Quality of Pain: reports: aching, dull Onset/Duration: reports: gradual Timing: reports: still present Headache Context: reports: nothing Headache History: reports: other (reports having brain CA.) Any recent trauma/injury?: reports: none Associated Symptoms: reports: headache, nausea, vomiting. denies: chest pain, neck/back pain, fever/chills, seizures, slurred speech Similar Symptoms Previously?: Yes Recently seen or treated by another doctor?: Yes Review of Systems - Adult - REVIEW OF SYSTEMS - ADULT ROS:: ROS per family Constitutional: denies: chills, fever Ears, Nose, Mouth & Throat: denies: ear pain, nose pain, loose teeth, throat pain Cardiovascular: denies: chest pain, irregular heart rate, palpitations, syncope Respiratory: denies: cough, pleurisy, shortness of breath, wheezing Gastrointestinal: reports: nausea, vomiting. denies: abdominal pain, diarrhea Genitourinary: denies: discharge, frequency, hematuria, hesitency Musculoskeletal: denies: bone pain, back pain, joint swelling, muscle aches Neurological: reports: headache/migraines. denies: dizziness/vertigo, numbness , paresthesia, seizure, slurred speech Past History - Adult - PAST MEDICAL HISTORY-ADULT Review of Records: reports: Old Records Reviewed, Nursing Assessment Review Major Childhood Illnesses: reports: denies history Cardiovascular: reports: CAD, HTN, VA Respiratory: reports: asthma, COPD, cancer (adenocarcinoma of the lung, stage IV ) Gastrointestinal: reports: GERD Genitourinary: reports: denies history Musculoskeletal: reports: denies history Neurological: reports: CVA. denies: stroke deficits Endocrine/Immune: reports: denies history Other Conditions: reports: denies history - PRIOR SURGERIES/PROCEDURES Surgical/Procedure History: reports: appendectomy, cholecystectomy, indwelling device (picc, PEG), hernia repair, back/neck - IMMUNIZATION STATUS Childhood Immunizations: See Nurse Assessment Flu Vaccine: See Nurse Assessment - FAMILY HISTORY Family History: reviewed, not pertinent - SOCIAL HISTORY Smoking: greater than 1 pack/day Provider spent 3-5 mins advising pt. on dangers of tobacco.: Discussed manners to quit use, and f/u contacts for add'l counseling. Substance Use: alcohol Alcohol Use Frequency: every day Physical Exam- Neurological - Physical Exam-Neuro Initial Vital Signs Reviewed: Yes General Appearance: appears well, alert, no apparent distress HENMT: moist mucous membranes, normal ENT inspection Head Injury: no evidence of injury Neck: non-tender, full range of motion Respiratory: chest non-tender, lungs clear, normal breath sounds Cardiovascular: normal peripheral pulses, tachycardia Abdominal Exam: normal bowel sounds, non tender, soft Lymphatic: no adenopathy Extremity: normal range of motion, non-tender nurse monitoring Exam: normal hearing, normal speech. negative: hearing deficit (R), hearing deficit (L), tongue deviation to R, tongue deviation to L Motor/Sensory: no motor deficit, no sensory deficit, no pronator drift Neurologic: grossly normal, no motor/sensory deficits Integumentary: normal color, normal turgor, warm/dry Psych/Mental Status: oriented x 3 Progress - PLAN OF CARE/RESULTS Progress/Plan/Lab Results: Vital Signs - 8 hr 12/22/16 09:12 12/22/16 11:20 Temperature 97.8 F Pulse Rate 91 H 83 Respiratory Rate 20 Blood Pressure 97/65 104/76 O2 Sat by Pulse Oximetry 100 99 Laboratory Results - last 24 hr 12/22/16 12/22/16 12/22/16 10:30 10:30 11:21 WBC 6.86 RBC 3.40 L Hgb 10.9 L Hct 33.7 L MCV 99.1 H MCH 32.1 H MCHC 32.3 L RDW Std Deviation 14.9 H Plt Count 174 MPV 10.6 H Neut % (Auto) 87.0 H Lymph % (Auto) 5.2 L Richardson % (Auto) 6.7 Eos % (Auto) 1.0 Baso % (Auto) 0.1 Neut # (Auto) 5.96 Lymph # (Auto) 0.36 L Richardson # (Auto) 0.46 Eos # (Auto) 0.07 Baso # (Auto) 0.01 Sodium 136 Potassium 4.1 Chloride 98 Carbon Dioxide 26 Anion Gap 12 BUN 28 H Creatinine 0.8 Estimated GFR/1.73 m2 > 60 BUN/Creatinine Ratio 35 Glucose 168 H Calculated Osmolality 281 Calcium 8.6 L Total Bilirubin 0.23 AST 30 ALT 50 H Alkaline Phosphatase 91 Total Protein 5.6 L Albumin 3.1 L Globulin 2.5 Albumin/Globulin Ratio 1.2 Amylase 790 H Lipase 1167 H Urine Source CLEAN CATCH Urine Color YELLOW Urine Turbidity CLEAR Urine pH 7.0 Ur Specific [place] 1.018 Urine Protein NEGATIVE Ur Glucose (Stick) NEGATIVE Ur Ketones (Stick) NEGATIVE Urine Blood NEGATIVE Urine Nitrite NEGATIVE Urine Bilirubin NEGATIVE Urobilinogen Dipstick NORMAL Urine Leukocytes NEGATIVE Urine WBC (Auto) <10 Urine RBC (Auto) <10 U Epithel Cells (Auto) <10 Urine Bacteria (Auto) NEGATIVE Orders Category Date Time Status Saline Loc DIRECTED Care 12/22/16 10:18 Active NPO Diet 12/22/16 10:18 Active CHEST-PORTABLE [RAD] Stat Exams 12/22/16 10:[address] ABD/PELVIS W/ IV CONT ONLY [CT] Stat Exams 12/22/16 11:55 Ordered HEAD W/O CONTRAST [CT] Stat Exams 12/22/16 09:24 Completed MRI BRAIN W W/O CONTRAST [MRI] Stat Exams 12/22/16 11:48 Ordered AMYLASE [CHEM] Stat Lab 12/22/16 10:30 Completed CBC WITH ELECTRONIC DIFF [HEME] Stat Lab 12/22/16 10:30 Completed COMPREHENSIVE METABOLIC PANEL [CHEM] Stat Lab 12/22/16 10:30 Completed LACTATE, PLASMA [CHEM] Stat Lab 12/22/16 11:19 Uncollected LIPASE [CHEM] Stat Lab 12/22/16 10:30 Completed URINALYSIS W/POSS RFLX CULT-1 [URINALYSIS] Stat Lab 12/22/16 11:21 Completed 0.9% Sodium Chloride Inj [Ns] 1,000 ml Med 12/22/16 10:17 Discontinued IV 1,000 mls/hr Hydromorphone [Dilaudid] Med 12/22/16 10:19 Discontinued 1 mg IV NOW ONE Ondansetron [Zofran] Med 12/22/16 10:19 Discontinued 4 mg IV NOW ONE PLAN: HEAD CT, LABS, , MONITOR PT. Result Diagrams: 12/22/16 10:30 12/22/16 10:30 - REASSESSMENT Reassessment #1 Time Reassessed: 11:46 Status: unchanged (dr. macias explained to pt that MRI will be done for conformation of CT results.) - CT/MRI 1 CT Study: Head Impression: Normal (no hemorrhage, no other adnormalitly identified on the current exam- (radiologist)) - CONSULTS/PCP/HOSPITALIST Notification #1 *Consult/PCP/Hospitalist*: (pcp) Time Discussed: 11:53 Consult Disposition: Admit Departure - Departure Date of Disposition Decision: 12/22/16 Time of Disposition Decision: 11:54 DIAGNOSIS: Pancreatitis, Headache, Dehydration Disposition: ADMITTED INPATIENT 09 Certified Medical Emergency: Emergent Condition: Stable Referrals and Follow-Ups: Sherif Islas MD [Primary Care Provider] - Discharge Education: Migraine Headache, [id number] - Critical Care Note This patient required my direct & personal management of CC.: No This chart was documented by the indicated scribe, (Mayte Amezcua Scribe) and accurately reflects the services I performed and decisions made by me, Joy Macias MD, as attested by the provider's signature.
--- NOTE | 2016-12-22 13:18 | Diag Imaging Result Doc PS360 ---
EXAM: MRI BRAIN W W/O CONTRAST HISTORY: Brain cancer TECHNIQUE: Axial, sagittal, and coronal images obtained in multiple sequences. These are followed by postcontrast axial and coronal images. COMPARISON: Dictated CT the brain from 11/28/2016 FINDINGS: Interval improvement with decreased edema in the right cerebellum. There are several cerebellar lesions with the largest laterally located in the right lobe measuring 12 mm. There is mild peripheral enhancement on the postcontrast images. There are a few other subtle nodules scattered in the brain measuring only 1 to 3 mm. Decreased edema around these as well. No midline shift. No hydrocephalus. No epidural or subdural fluid collection. No sinus opacification although there is fluid in the right mastoid sinus. IMPRESSION: Small scattered brain metastases with interval improvement with decreased surrounding edema. Electronically signed by Chucho Mccauley 12/22/2016 1:16 PM
--- NOTE | 2016-12-22 13:24 | Diag Imaging Result Doc PS360 ---
EXAM: CT ABD/PELVIS W/ IV CONT ONLY HISTORY: Abd pain TECHNIQUE: Dose reduction technique COMPARISON: 12/20/2015 FINDINGS: There are now several scattered hypodense hepatic lesions consistent with hepatic metastases. Interval development of a large right adrenal nodule measuring at least 3.2 x 4.2 cm. Mild thickening to the left adrenal gland is unchanged. Spleen is not enlarged. The gallbladder has been removed. There are subtle scattered hypodense lesions within the pancreas. No adjacent inflammation. Interval development of a lobulated 2.6 cm mid right renal mass. Posteriorly is a 16 millimeter nodule and inferiorly is a 21 mm nodule. Likely tiny nodules in the left kidney as well. A 15 mm nodule lies adjacent to the upper pole of the left. No aortic aneurysm. Moderate atherosclerosis. A gastric tube enters the stomach. No bowel obstruction. Normal appendix. No abscess. The urinary bladder is moderately distended and appears normal. There are postsurgical changes to the lumbar spine. There are several small mesenteric nodules scattered. The largest measures 17 mm IMPRESSION: There are scattered hepatic, pancreatic, mesenteric, renal, and right adrenal metastasis. Electronically signed by Chucho Mccauley 12/22/2016 1:22 PM
[2016-12-22] MEDS: DILAUDID IV PRN (16:26)
[2016-12-22] MEDS ORDERED: ZOFRAN IV PRN (18:01)
[2016-12-22] MEDS: PROTONIX IV SCH (18:33)
[2016-12-22] MEDS: SODIUM CHLORIDE 0.9% INJ SCH (18:33)
[2016-12-22] MEDS: SOLU-MEDROL IV SCH (18:33)
[2016-12-22] MEDS: NS + KCL 20 MEQ 1,000 ML IV SCH (18:33)
[2016-12-22] MEDS: CARAFATE LIQUID PO SCH (20:15)
[2016-12-22] MEDS: KEPPRA PO SCH (20:15)
[2016-12-22] MEDS: AMBIEN PO SCH (20:16)
[2016-12-22] MEDS: FLOMAX PO SCH (20:16)
--- NOTE | 2016-12-22 20:45 | HISTORY AND PHYSICAL ---
CHIEF COMPLAINT: Abdominal pain, nausea, and vomiting. HISTORY OF PRESENT ILLNESS: Mr. Lr is a 66-year-old white gentleman. The patient was not doing well the last few days. The patient was complaining of nausea, vomiting, abdominal pain, not able to keep anything by mouth. The patient did have some chills. The patient had difficulty swallowing his pain medication. The patient was instructed to come to the emergency room. His cancer doctor was concerned about his brain lesion, swelling. They did a CT scan of the brain which did show improvement in his brain metastasis. Patient workup in the emergency room did reveal evidence of acute pancreatitis. Patient was symptomatic with nausea, vomiting, weakness. ER physician called me and we decided to admit the patient for further care. His pain was mainly epigastric sharp pain, going to his back. He denied any hematemesis. He denied any diarrhea, blood or mucus in the stool. No typical chest pain or palpitations. The patient does have cough with scanty sputum production. The patient has a history of esophagitis and esophageal stricture, at times problems swallowing. The patient does have a PEG tube. Does have chronic pain due to his cancer and metastasis. No recent seizure-type episode. No dysuria or hematuria. No heat or cold intolerance. Denied polyuria, polydipsia. No further history available at this time. The patient claims he was feeling depressed. No suicidal or homicidal ideation. No further history available at this time. ALLERGIES: Morphine, aspirin, and Duragesic patch. CURRENT MEDICATIONS: Includes Ambien, Keppra, thiamine, Nexium, Flomax. Patient was on Nucynta at home. Moni, Boyle, oxycodone IR, Lomotil, and dexamethasone. PAST MEDICAL HISTORY: Lung cancer with metastasis to the brain, esophagitis with stricture requiring dilatation, gastritis. The patient does have PEG tube. Low back pain, BPH, COPD, chronic pain. The patient is on chronic steroids since his last admission. Insomnia, situational depression. PERSONAL HISTORY: Single, lives by himself. Son takes care of the patient. Quit smoking 2 years ago. Denied alcohol or substance abuse. FAMILY HISTORY: Noncontributory. REVIEW OF SYSTEMS: As per HPI. Otherwise unobtainable. PHYSICAL EXAMINATION: GENERAL: Elderly white gentleman in mild distress. VITAL SIGNS: Blood pressure 103/53, pulse 80, respirations 16, temperature 97.6 degrees. SKIN: Senile turgor. No rash or petechiae. HEENT: Head atraumatic, normocephalic. Cornell conjunctivae. Anicteric sclerae. Extraocular muscle movement normal. Fundus cannot be penetrated. Good oral hygiene. No tonsillopharyngeal congestion or exudate. Ears and nose benign. NECK: Supple. No JVD, thyromegaly, or lymphadenopathy. CHEST: Bibasilar crepitation. Occasional wheezing. CARDIOVASCULAR: S1 and S2 heard. No gallop or thrill. ABDOMEN: Soft, scaphoid. PEG tube is in place. Epigastric tenderness. No guarding or rigidity. EXTREMITIES: No cyanosis, clubbing. No acute DVT. INFORMATION RECEPTIONIST: Alert, awake. Answering questions fairly well. Able to move all 4 limbs. LABORATORY DATA: Revealed hemoglobin 10.9, hematocrit 33.7, platelet count 174,000, WBC count 6.86. Electrolytes fairly benign. Amylase 790, lipase 1,167. Urinalysis was benign. CT scan of the abdomen and pelvis did reveal scattered hepatic, pancreatic, mesenteric, renal, and right adrenal metastases. MRI of the brain did reveal small scattered brain metastasis with interval improvement with decreased surrounding edema. CT scan of the head, results reviewed. Chest x- ray, results also noted. CONSIDERATION: 1. Patient admitted with abdominal pain, nausea, and vomiting. Found to have acute pancreatitis. 2. Metastatic lung cancer. 3. Gastritis and esophagitis. 4. Low back pain. 5. Benign prostatic hypertrophy. 6. Seizure. PLAN: Admit the patient. IV hydration. Pain management. DVT and GI prophylaxis. Continue home medicine. Overall plan discussed at length with the patient. He is in agreement. I am going to continue a small dose of steroid. I did discuss with the patient about code status and he requested DNR 1. cc: Sherif Islas MD
[2016-12-23] MEDS: CARAFATE LIQUID PO SCH ×4 (02:32→20:51)
[2016-12-23] MEDS: NS + KCL 20 MEQ 1,000 ML IV SCH ×4 (02:32→23:50)
[2016-12-23] MEDS: DILAUDID IV PRN ×5 (02:41→21:02)
[2016-12-23] MEDS: SOLU-MEDROL IV SCH ×2 (05:51→17:14)
--- NOTE | 2016-12-23 06:32 | PROGRESS NOTE ---
DATE: 12/23/2016 SUBJECTIVE: Mr. Lr is feeling some better. He still has pain in the abdomen, some nausea. Vomiting improving. Denied any diarrhea. No chest pain. Does have chronic cough with scanty sputum production. No typical chest pain. No unusual headache or seizure-type episode. Denied any dysuria. Patient admitted with abdominal pain, nausea, vomiting. Found to have pancreatitis. OBJECTIVE: Vital Signs: Noted. Neck: Supple. No JVD. Lungs: Bibasilar crepitations occasional wheezing. CVS: S1 and S2 heard. Abdomen: Soft. PEG tube is in place. Tenderness in the epigastrium. No guarding or rigidity. Extremities: No cyanosis, clubbing. No acute DVT. INSPECTOR SET UP AND LAY OUT: Alert, awake. Able to move all 4 limbs. CONSIDERATION: Acute pancreatitis. I repeated blood work. Results are pending. Clinically, patient is doing better. We will continue current treatment. Metastatic lung cancer with metastasis to the pancreas, liver adrenal glands, and brain. Much advanced disease. We will do oncology consult with Dr. Mendez. Chronic obstructive pulmonary disease. Patient quit smoking 2 years ago. Seizures secondary to brain metastases. Chronic pain. We will optimize pain management. Benign prostatic hypertrophy. On Flomax. PLAN: Continue current treatment. Close observation. I will follow his lab results. I did talk to patient yesterday about his care. He requested DNR 1. cc: Sherif Islas MD
[2016-12-23 07:35] LABS: BASO% 0.1 % (0.0-0.8); EOS# 0.06 X1000 (0.0-0.7); EOS% 0.6 % (0.0-10.0); HEMATOCRIT 35.5 % (42.0-52.0); HEMOGLOBIN 11.5 g/dL (14.0-18.0); IMM GRAN# 0.03 X1000 (0.0-0.04); IMM GRAN% 0.3 % (0.0-0.5); LYMPH# 0.48 X1000 (1.2-3.4); MANUAL DIFF NEEDED? YES; MCH 31.8 PG (27-31); MCHC 32.4 g/dL (33-37); MCV 98.1 FL (81-99); MONO# 0.58 X1000 (0.11-0.59); MPV 11.2 FL (7.4-10.4); PLT 157 X1000 (130-400); RBC 3.62 XMIL (4.7-6.1)
[2016-12-23 07:48] LABS: AGAP 15; ALBUMIN 3.4 g/dL (3.5-5.0); ALKALINE PHOSPHATASE 91 U/L (32-122); AMYLASE 585 U/L (20-200); BUN 20 mg/dL (8-22); CALCIUM 8.1 mg/dL (8.8-10.2); CHLORIDE 102 mmol/L (98-107); COSMO 276; GOT 25 U/L (10-34); GPT 50 U/L (10-44); LYMPHS 10 % (21-51); POTASSIUM 4.7 mmol/L (3.5-5.1); SODIUM 136 mmol/L (136-145); TCO2 19 mmol/L (25-35); TOTAL BILIRUBIN 0.38 mg/dL (0.20-1.00); TOTAL PROTEIN 5.6 g/dL (6.3-8.3)
[2016-12-23] MEDS: KEPPRA PO SCH ×2 (08:17→20:52)
[2016-12-23] MEDS: VITAMIN B-1 PO SCH (08:17)
[2016-12-23] MEDS: LEXAPRO PO SCH (08:18)
[2016-12-23 08:31] LABS: LIPASE 751 U/L (13-60)
[2016-12-23] MEDS: PROTONIX IV SCH (17:09)
[2016-12-23] MEDS: SODIUM CHLORIDE 0.9% INJ SCH (17:09)
[2016-12-23] MEDS: DUONEB (A & A) INH SCH (20:10)
[2016-12-23] MEDS: AMBIEN PO SCH (20:52)
[2016-12-23] MEDS: FLOMAX PO SCH (20:52)
[2016-12-24] MEDS: CARAFATE LIQUID PO SCH ×4 (02:37→20:32)
[2016-12-24] MEDS: DILAUDID IV PRN ×4 (03:01→18:47)
[2016-12-24] MEDS: DUONEB (A & A) INH SCH ×6 (04:11→20:08)
[2016-12-24] MEDS: SOLU-MEDROL IV SCH ×2 (06:51→18:43)
[2016-12-24] MEDS ORDERED: ATIVAN PO PRN (07:06)
--- NOTE | 2016-12-24 07:19 | PROGRESS NOTE ---
DATE: 12/24/2016 SUBJECTIVE: Mr. Lr is doing fair. He still has mild abdominal pain. No nausea or vomiting. No high-grade fever or chills. No dysuria or hematuria. Tolerating fluid well. OBJECTIVE: His vital signs noted. Neck supple. No JVD. Lungs: Bibasilar crepitation. Occasional wheezing. CVS: S1 and S2 heard. Abdomen soft. Mild epigastric tenderness. No guarding or rigidity. Extremities: No cyanosis or clubbing. No acute DVT. BUSINESS CONTINUITY MANAGEMENT DIRECTOR: Alert, awake, answering questions fairly well. CONSIDERATION: 1. The patient admitted with acute pancreatitis. His amylase and lipase were high yesterday. I am going to recheck amylase and lipase today. Once it comes down to normal, we will consider starting feeding. The patient claims to be nervous and upset. I am going to add anxiolytic medicine as the patient does have advanced malignancy. The patient wants to see his cancer doctor and consult is already being placed. 2. Chronic obstructive pulmonary disease. 3. Low back pain. 4. Gastritis. 5. Benign prostatic hypertrophy. PLAN: Overall plan discussed with the patient and he is in agreement. cc: Sherif Islas MD
[2016-12-24] MEDS: VITAMIN B-1 PO SCH (08:54)
[2016-12-24] MEDS: LEXAPRO PO SCH (08:54)
[2016-12-24] MEDS: KEPPRA PO SCH ×2 (08:54→20:32)
[2016-12-24] MEDS: NS + KCL 20 MEQ 1,000 ML IV SCH ×2 (09:22→20:32)
--- NOTE | 2016-12-24 13:07 | CONSULTATION ---
DATE OF CONSULTATION: 12/23/2016 REFERRING PHYSICIAN: Dr. Islas. REASON FOR REFERRAL: Abdominal pain, nausea and vomiting, metastatic lung cancer, known to our service. HISTORY OF PRESENT ILLNESS: Mr. Domingo Lr is a very pleasant 66-year-old man with a history of metastatic lung cancer, known to the service of Dr. Naa Mendez, who was admitted to [facility] for complaints of abdominal pain, nausea and vomiting. Upon further workup, he was found to have an elevated lipase and amylase and was believed to have acute pancreatitis. He has been admitted for further management of symptoms. The Hematology/Oncology service was placed on consult to provide further workup and treatment options. PAST MEDICAL HISTORY: 1. Metastatic lung cancer. 2. Chronic pain. 3. Esophagitis. 4. BPH. 5. COPD. 6. Gastritis. SOCIAL HISTORY: The patient is a former smoker. Denies any alcohol, tobacco or illicit drug use. FAMILY HISTORY: Negative for malignancies or hematological disorders. ALLERGIES: 1. Duragesic. 2. Aspirin. 3. Morphine. MEDICATIONS: As per medication sheet. REVIEW OF SYSTEMS: As per HPI. Otherwise, a 12-point review of systems was negative. PHYSICAL EXAMINATION: General: The patient appears to be in no apparent distress. He is sitting up in his hospital bed. Vital Signs: Blood pressure 107/75, pulse 75, respirations 18, temperature 97.2 degrees Fahrenheit, O2 saturation 98% on room air. HEENT: Head normocephalic, atraumatic. Mucosa is pale and moist. Pupils reactive to light. Oropharynx clear. Neck: Supple. No lymphadenopathy or thyromegaly. Cardiovascular: S1, S2. Regular rate and rhythm. No murmurs noted. Respiratory: Breath sounds clear to auscultation bilaterally. No rhonchi, rales. Wheezing noted bilaterally. Abdomen: Soft, nontender, nondistended. Positive for bowel sounds. Extremities: No evidence of edema, DVT or cyanosis. Skin: No rashes or lesions noted. Neurological: No focal neurological deficits. ASSESSMENT AND PLAN: 1. Metastatic lung cancer. 2. Abdominal pain. Nausea and vomiting. Acute pancreatitis. 3. Gastritis and esophagitis. PLAN: 1. The patient is status post whole brain radiation therapy as well as palliative chemotherapy. He is currently receiving supportive care. Further recommendations will depend upon the patient's hospital course. 2. We agree with pain control and antiemetics as per hospitalist. 3. We agree with a GI prophylaxis and present management as per hospitalist. Thank you for this consult and allowing us to take part in the care of this patient. We will continue to follow along with you. Further recommendations to follow. cc: MD Sherif Santiago MD
[2016-12-24] MEDS: PROTONIX IV SCH (18:43)
[2016-12-24] MEDS: SODIUM CHLORIDE 0.9% INJ SCH (18:43)
[2016-12-24] MEDS: AMBIEN PO SCH (20:32)
[2016-12-24] MEDS: FLOMAX PO SCH (20:32)
[2016-12-25] MEDS: DILAUDID IV PRN ×5 (01:03→20:45)
[2016-12-25] MEDS: CARAFATE LIQUID PO SCH ×4 (01:03→20:44)
[2016-12-25] MEDS: DUONEB (A & A) INH SCH ×4 (03:48→19:53)
[2016-12-25] MEDS: SOLU-MEDROL IV SCH ×2 (05:36→17:00)
[2016-12-25] MEDS: NS + KCL 20 MEQ 1,000 ML IV SCH ×3 (05:36→16:51)
[2016-12-25 07:08] LABS: HEMATOCRIT 31.7 % (42.0-52.0); HEMOGLOBIN 10.2 g/dL (14.0-18.0); IMM GRAN# 0.04 X1000 (0.0-0.04); IMM GRAN% 0.5 % (0.0-0.5); LYMPH# 0.29 X1000 (1.2-3.4); LYMPH% 3.6 % (20.5-51.1); MANUAL DIFF NEEDED? NO; MCH 30.9 PG (27-31); MCHC 32.2 g/dL (33-37); MCV 96.1 FL (81-99); MONO# 0.63 X1000 (0.11-0.59); MONO% 7.9 % (1.7-9.3); MPV 10.6 FL (7.4-10.4); PLT 181 X1000 (130-400)
[2016-12-25 07:31] LABS: AGAP 10; ALBUMIN 2.7 g/dL (3.5-5.0); ALKALINE PHOSPHATASE 81 U/L (32-122); AMYLASE 344 U/L (20-200); BUN 21 mg/dL (8-22); CALCIUM 7.5 mg/dL (8.8-10.2); CHLORIDE 106 mmol/L (98-107); COSMO 283; GOT 23 U/L (10-34); GPT 54 U/L (10-44); POTASSIUM 4.3 mmol/L (3.5-5.1); SODIUM 137 mmol/L (136-145); TCO2 21 mmol/L (25-35); TOTAL BILIRUBIN 0.19 mg/dL (0.20-1.00)
[2016-12-25 07:35] LABS: LIPASE 574 U/L (13-60)
[2016-12-25] MEDS: KEPPRA PO SCH ×3 (07:47→20:44)
[2016-12-25] MEDS: VITAMIN B-1 PO SCH ×2 (07:47→11:35)
[2016-12-25] MEDS: LEXAPRO PO SCH ×2 (07:47→11:35)
--- NOTE | 2016-12-25 13:57 | PROGRESS NOTE ---
DATE: 12/25/2016 SUBJECTIVE: Patient is sitting up in his bed trying to eat Jell-O. He says he is tolerating it fairly well. He ate some broth this morning. He does not want to advance his diet to puree diet at this time. States he wants to make sure he can tolerate this 1st. He also continues with tube feedings. OBJECTIVE: Vital signs: Afebrile, pulse 90, respirations 20, blood pressure 108/62, O2 saturation room air 94-95%. Cardiovascular: RRR. Lungs: CTA. Distant breath sounds. Abdomen: Mild tenderness epigastrium. Extremities: No calf tenderness, cords or edema. LABORATORIES: Show white count 8, hemoglobin 10.2, platelets 181,000. Sodium 137, potassium 4.3, CO2 21, BUN 21, creatinine 0.6, AST 23, ALT 54, alkaline phosphatase 81, amylase has decreased to 344, lipase 574 down from 1100 earlier. ASSESSMENT: 1. Stage IV lung cancer with metastasis to the brain, pancreas, liver, kidneys and mesentery. 2. Pancreatitis associated with metastasis. 3. Chronic obstructive pulmonary disease. 4. Chronic low back pain. 5. Benign prostatic hypertrophy. PLAN: Continue pain control. Continue to try to push his oral intake as we can. Continued tube feeds. Antiemetics as needed. cc: MD Sherif Peguero MD
[2016-12-25] MEDS: SODIUM CHLORIDE 0.9% INJ SCH (17:00)
[2016-12-25] MEDS: PROTONIX IV SCH (17:00)
[2016-12-25] MEDS: FLOMAX PO SCH (20:44)
[2016-12-25] MEDS: AMBIEN PO SCH (20:44)
[2016-12-26] MEDS: NS + KCL 20 MEQ 1,000 ML IV SCH ×3 (00:57→18:24)
[2016-12-26] MEDS: DILAUDID IV PRN ×6 (00:58→22:36)
[2016-12-26] MEDS: CARAFATE LIQUID PO SCH ×4 (01:33→22:39)
[2016-12-26] MEDS: DUONEB (A & A) INH SCH ×6 (03:39→21:50)
[2016-12-26] MEDS: SOLU-MEDROL IV SCH ×2 (05:51→18:23)
[2016-12-26] MEDS: KEPPRA PO SCH ×2 (08:04→22:39)
[2016-12-26] MEDS: VITAMIN B-1 PO SCH (08:05)
[2016-12-26] MEDS: LEXAPRO PO SCH (08:05)
--- NOTE | 2016-12-26 11:54 | PROGRESS NOTE ---
DATE: 12/26/[address] Islas. SUBJECTIVE: Patient complains of some pains in his bones, mild. He also complains of no bowel movement. OBJECTIVE: Vital Signs: Afebrile, pulse 81, respirations 18, blood pressure 102/75, O2 saturation on room air of 97%. Cardiovascular: RRR. Lungs: Minimally coarse breath sounds. Abdomen: Mild distention. Active bowel sounds. Extremities: No calf tenderness, cords, or edema. ASSESSMENT: 1. Stage IV lung cancer with metastasis to the brain, pancreas, liver, kidneys, and mesentery. 2. Acute pancreatitis associated with metastasis. 3. Chronic obstructive pulmonary disease. 4. Chronic low back pain. 5. Benign prostatic hypertrophy. PLAN: We will get him a bedside commode and give him MiraLAX. Continue clear liquids for now as he does not feel he can push it past this at this point. Continue tube feedings as well. cc: MD Sherif Peguero MD
[2016-12-26] MEDS: MIRALAX PO SCH (13:57)
[2016-12-26] MEDS: SODIUM CHLORIDE 0.9% INJ SCH (18:23)
[2016-12-26] MEDS: PROTONIX IV SCH (18:23)
[2016-12-26] MEDS: FLOMAX PO SCH (22:39)
[2016-12-26] MEDS: AMBIEN PO SCH (22:44)
[2016-12-27] MEDS: CARAFATE LIQUID PO SCH ×4 (02:41→21:54)
[2016-12-27] MEDS: DILAUDID IV PRN ×6 (02:41→21:56)
[2016-12-27] MEDS: NS + KCL 20 MEQ 1,000 ML IV SCH ×3 (03:49→23:03)
[2016-12-27] MEDS: DUONEB (A & A) INH SCH ×4 (03:54→22:30)
[2016-12-27] MEDS ORDERED: MILK OF MAGNESIA PEG ONE (06:21)
[2016-12-27] MEDS ORDERED: DULCOLAX PR ONE (06:23)
[2016-12-27] MEDS: SOLU-MEDROL IV SCH ×2 (06:38→17:17)
--- NOTE | 2016-12-27 06:57 | PROGRESS NOTE ---
DATE: 12/27/2016 SUBJECTIVE: Mr. Lr is feeling better. He does have mild abdominal pain. No nausea or vomiting. Tolerating PEG tube feeding well. Does have chronic cough with scanty sputum production. No high-grade fever or chills. OBJECTIVE: Vital Signs: His vital signs noted. Lungs: Bibasilar crepitations, occasional wheezing. CVS: S1 and S2 heard. Abdomen: Soft, globular. Bowel sounds present. Mild epigastric tenderness. Extremities: No cyanosis, clubbing. No acute DVT. NEWSPAPER CARRIER: Alert, awake. Able to move all 4 limbs. Musculoskeletal: Patient does have tenderness of the lumbosacral spine. The patient was complaining of not having bowel movement for many days. CONSIDERATION: 1. Patient admitted with metastatic lung cancer, elevated lipase and amylase suggestive of pancreatitis. I reviewed his CT scan again. The patient had multiple pancreatic lesions. No evidence of acute inflammation. I am going to advance his diet. Recheck amylase and lipase. 2. Chronic obstructive pulmonary disease. 3. Seizure disorder. 4. Low back pain. 5. Constipation. PLAN: I am going to treat his constipation symptomatically. Check appropriate labs. Preparing patient for discharge soon. I am going to talk to his oncologist. Overall plan discussed with the patient and he is in agreement. cc: Sherif Islas MD
[2016-12-27 07:50] LABS: BASO% 0.1 % (0.0-0.8); HEMATOCRIT 34.2 % (42.0-52.0); HEMOGLOBIN 11.1 g/dL (14.0-18.0); IMM GRAN# 0.07 X1000 (0.0-0.04); IMM GRAN% 0.8 % (0.0-0.5); LYMPH# 0.35 X1000 (1.2-3.4); LYMPH% 4.1 % (20.5-51.1); MANUAL DIFF NEEDED? YES; MCH 31.4 PG (27-31); MCHC 32.5 g/dL (33-37); MCV 96.9 FL (81-99); MONO# 0.57 X1000 (0.11-0.59); MONO% 6.7 % (1.7-9.3); MPV 9.8 FL (7.4-10.4); NEUT% 88.3 % (42.2-75.2); PLT 181 X1000 (130-400); RBC 3.53 XMIL (4.7-6.1)
[2016-12-27 08:02] LABS: AGAP 10; ALBUMIN 2.9 g/dL (3.5-5.0); ALKALINE PHOSPHATASE 88 U/L (32-122); AMYLASE 240 U/L (20-200); BUN 19 mg/dL (8-22); CALCIUM 8.3 mg/dL (8.8-10.2); CHLORIDE 102 mmol/L (98-107); COSMO 279; GOT 26 U/L (10-34); GPT 75 U/L (10-44); MAGNESIUM 1.9 mg/dL (1.5-2.7); POTASSIUM 4.7 mmol/L (3.5-5.1); SODIUM 138 mmol/L (136-145); TCO2 26 mmol/L (25-35); TOTAL BILIRUBIN 0.24 mg/dL (0.20-1.00); TOTAL PROTEIN 5.2 g/dL (6.3-8.3)
--- NOTE | 2016-12-27 08:29 | Diag Imaging Result Doc PS360 ---
ABDOMEN FLAT/UPRIGHT - 12/27/2016 INDICATION: pain TECHNIQUE: Three views COMPARISON: 12/22/2016 FINDINGS: There is a stable gastrostomy tube in good position. No bowel obstruction or free air. IMPRESSION: No acute disease or change from prior. Electronically signed by Jamshid Baker 12/27/2016 8:27 AM
[2016-12-27] MEDS: MIRALAX PO SCH (08:32)
[2016-12-27] MEDS: VITAMIN B-1 PO SCH (08:32)
[2016-12-27] MEDS: KEPPRA PO SCH ×2 (08:32→21:54)
[2016-12-27 08:33] LABS: BANDS 4 % (0-1); LYMPHS 2 % (21-51); MONO 6 % (1-9)
[2016-12-27] MEDS: LEXAPRO PO SCH (08:33)
[2016-12-27 09:01] LABS: LIPASE 286 U/L (13-60)
[2016-12-27] MEDS ORDERED: DILAUDID PO PRN (16:20)
[2016-12-27] MEDS: SODIUM CHLORIDE 0.9% INJ SCH (17:17)
[2016-12-27] MEDS: PROTONIX IV SCH (17:17)
[2016-12-27] MEDS: AMBIEN PO SCH (21:54)
[2016-12-27] MEDS: FLOMAX PO SCH (21:54)
[2016-12-28] MEDS: CARAFATE LIQUID PO SCH ×4 (02:05→23:03)
[2016-12-28] MEDS: DILAUDID IV PRN ×6 (02:05→23:02)
[2016-12-28] MEDS: NS + KCL 20 MEQ 1,000 ML IV SCH (02:06)
[2016-12-28] MEDS: DUONEB (A & A) INH SCH ×4 (04:26→22:31)
[2016-12-28] MEDS: SOLU-MEDROL IV SCH ×2 (06:40→18:39)
--- NOTE | 2016-12-28 08:33 | PROGRESS NOTE ---
DATE: 12/28/2016 SUBJECTIVE: Mr. Lr is doing some better. He denied any high-grade fever, chills, mild abdominal pain. No nausea or vomiting. Tolerating food well. He did have a good bowel movement. The patient does have chronic cough. No unusual expectoration. OBJECTIVE: His vital signs noted. Patient is afebrile. Neck supple. No JVD. Lungs: Bilateral occasional wheezing. CVS: S1 and S2 heard. Abdomen soft. No distention. Bowel sounds present. PEN RIDER: Alert, awake. Able to move all 4 limbs. CONSIDERATION: 1. Pancreatitis. Amylase and lipase is improving. Clinically, the patient is doing better. I am going to increase feeding. 2. Metastatic lung cancer. 3. Chronic obstructive pulmonary disease. 4. Low back pain. 5. Benign prostatic hypertrophy. LABORATORY DATA: Lab data done yesterday reviewed. PLAN: Overall, the patient is improving. I am going to stop IV fluid. Continue rest of the treatment. Close observation. cc: Sherif Islas MD
[2016-12-28] MEDS: LEXAPRO PO SCH (08:38)
[2016-12-28] MEDS: KEPPRA PO SCH ×2 (08:38→23:20)
[2016-12-28] MEDS: MIRALAX PO SCH (08:38)
[2016-12-28] MEDS: VITAMIN B-1 PO SCH (08:38)
--- NOTE | 2016-12-28 10:16 | PROGRESS NOTE ---
DATE: 12/27/2016 SUBJECTIVE: Mr. Lr reports that he is doing well today. He reports that he has good and bad days, and today is an okay day. OBJECTIVE/VITAL SIGNS: Temperature 98.3 degrees, heart rate 90, respirations 18, blood pressure 102/71, O2 saturation 96% on room air. LABORATORY: White blood cells 8.54, hemoglobin 11.1, hematocrit 34.2, platelet count 181. Sodium 138, potassium 4.7, chloride 102, CO2 26, BUN 19, creatinine 0.6, glucose 120. PHYSICAL EXAM: CV: Regular rate and rhythm. S1, S2 heard. Respiratory: Coarse breath sounds bilaterally. No wheezing or rhonchi noted. Gastrointestinal: Abdomen is soft and nondistended. Positive bowel sounds. Musculoskeletal: No obvious bony abnormalities. Extremities: No edema. ASSESSMENT AND PLAN: 1. 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 The patient has been admitted with seizure activity, as well as for pancreatitis. He is not currently receiving systemic treatment and is not a candidate for systemic treatment. The patient does not want hospice, but has agreed to go home whenever he is ready with palliative care. 2. Pancreatitis. Slowly improving. Patient's amylase and lipase are down to 240 and 286 respectively. Continue to monitor. Continue to advance diet slowly. 3. Seizure activity. Patient had no further seizures since his hospitalization. He will continue on Keppra. He is also receiving intravenous steroids. 4. Pain. Poorly controlled upon admission. The pain is much better controlled with intravenous Dilaudid. Will trial oral Dilaudid in order to prepare the patient to be discharged home. Dictated by SHAHRZAD Post for Naa Mendez MD cc: MD Sherif Scruggs MD
[2016-12-28] MEDS ORDERED: DILAUDID PO PRN (12:39)
--- NOTE | 2016-12-28 17:44 | PROGRESS NOTE ---
DATE: 12/28/2016 SUBJECTIVE: Mr. Lr reports that he is doing relatively well today. He is eating more solid food today. He reports that the Dilaudid 1 mg p.o. tablet did not help his pain. He is now receiving the IV Dilaudid. OBJECTIVE: Vital Signs: Temperature 98.4 degrees, heart rate 75, respirations 18, blood pressure 106/71, O2 saturation 95% on room air. LABORATORY STUDIES: From 12/27/2016, the patient's white blood cells 8.54, hemoglobin 11.1, hematocrit 34.2, platelet count 181,000. Sodium 138, potassium 4.7, chloride 102, CO2 26, BUN 19, creatinine 0.6, glucose 120. ASSESSMENT AND PLAN: 1. Non-small cell lung cancer, now with brain metastasis. Patient is planning to go home with palliative care. No further systemic treatment is planned at this time. Patient is status post radiation to brain metastasis. 2. Pain. Working on trying to get the patient stable on a p.o. form of pain medications. He has previously had poor tolerance to long-acting medications. We will go ahead increase Dilaudid to 2 mg q.4 hours. We will continue to adjust this as needed. 3. Pancreatitis. Slowly improving. Continue to advance diet as tolerated. Dictated by SHAHRZAD Post for Naa Mendez MD cc: MD Sherif Scruggs MD i have examined the patient and reviewed the chart. Trying to find adequate oral pain regimen for discharge. Naa EMERSON
[2016-12-28] MEDS: SODIUM CHLORIDE 0.9% INJ SCH (18:39)
[2016-12-28] MEDS: PROTONIX IV SCH (18:40)
[2016-12-28] MEDS: AMBIEN PO SCH (23:19)
[2016-12-28] MEDS: FLOMAX PO SCH (23:19)
[2016-12-29] MEDS: DILAUDID IV PRN ×3 (02:36→10:40)
[2016-12-29] MEDS: CARAFATE LIQUID PO SCH ×4 (02:36→23:23)
[2016-12-29] MEDS: DUONEB (A & A) INH SCH ×4 (03:00→20:45)
[2016-12-29] MEDS: SOLU-MEDROL IV SCH ×2 (06:23→18:36)
[2016-12-29 06:56] LABS: AGAP 10; ALBUMIN 2.9 g/dL (3.5-5.0); ALKALINE PHOSPHATASE 94 U/L (32-122); AMYLASE 209 U/L (20-200); BUN 16 mg/dL (8-22); CALCIUM 9.6 mg/dL (8.8-10.2); CHLORIDE 98 mmol/L (98-107); COSMO 278; GOT 31 U/L (10-34); GPT 88 U/L (10-44); LIPASE 171 U/L (13-60); POTASSIUM 5.2 mmol/L (3.5-5.1); SODIUM 138 mmol/L (136-145); TCO2 30 mmol/L (25-35); TOTAL BILIRUBIN 0.42 mg/dL (0.20-1.00); TOTAL PROTEIN 5.7 g/dL (6.3-8.3)
--- NOTE | 2016-12-29 07:27 | PROGRESS NOTE ---
DATE: 12/29/2016 SUBJECTIVE: Mr. Lr is doing better. Tolerating PEG tube feeding well. No nausea or vomiting. This morning, the patient had vague lower chest/upper abdominal pain. He denied any nausea or vomiting. No high-grade fever or chills. The patient does have chronic cough, no expectoration. OBJECTIVE: Vital Signs: Reviewed. Neck: Supple. No JVD. Lungs: Bibasilar crepitations. Heart: Regular. Abdomen: Soft. No distention. Bowel sounds present. Mild epigastric tenderness. No guarding or rigidity. HUMAN RESOURCES PROJECT COORDINATOR: Alert, awake. Able to move all 4 limbs. Lab Data: Done today, potassium 5.2. Amylase 209, lipase 171, gradually going down. IMPRESSION AND PLAN: Clinically, patient is doing better. The patient had chest pain. I am going to check his cardiac isoenzymes. We will do EKG. I had a lengthy discussion with patient about palliative care versus hospice at home. The patient does have very advanced lung cancer with diffuse metastasis. I think patient will be benefited from hospice. Discussed with the patient. He is in agreement and I am going to get hospice evaluation. cc: Sherif Islas MD
[2016-12-29] MEDS: VITAMIN B-1 PO SCH ×2 (07:55→08:01)
[2016-12-29] MEDS: LEXAPRO PO SCH ×2 (07:55→08:01)
[2016-12-29] MEDS: MIRALAX PO SCH ×2 (07:55→08:00)
[2016-12-29] MEDS: KEPPRA PO SCH ×3 (07:55→23:24)
[2016-12-29] MEDS: DILAUDID PO PRN ×3 (14:44→23:23)
[2016-12-29] MEDS: PROTONIX IV SCH (18:36)
[2016-12-29] MEDS: SODIUM CHLORIDE 0.9% INJ SCH (18:36)
[2016-12-29] MEDS: AMBIEN PO SCH (23:24)
[2016-12-29] MEDS: FLOMAX PO SCH (23:24)
[2016-12-30] MEDS: CARAFATE LIQUID PO SCH ×2 (03:00→08:00)
[2016-12-30] MEDS: DILAUDID PO PRN ×2 (04:10→08:05)
[2016-12-30] MEDS: DUONEB (A & A) INH SCH ×2 (04:13→09:23)
[2016-12-30] MEDS: SOLU-MEDROL IV SCH (06:22)
[2016-12-30 07:24] VITALS: BP 98/62
[2016-12-30] MEDS: VITAMIN B-1 PO SCH (07:59)
[2016-12-30] MEDS: KEPPRA PO SCH (08:00)
[2016-12-30] MEDS: MIRALAX PO SCH (08:00)
[2016-12-30] MEDS: LEXAPRO PO SCH (08:00)
--- NOTE | 2016-12-30 08:33 | PROGRESS NOTE ---
DATE: 12/29/2016 SUBJECTIVE: Mr. Lr is doing okay today. He has no new complaints. OBJECTIVE: Vital Signs: Temperature 97.8 degrees, heart rate 83, respirations 18, blood pressure 98/62, O2 saturations 98% on room air. LABS: Sodium 132, potassium 5.2, chloride 98, CO2 30. BUN 16, creatinine 0.7. Glucose 114. Amylase and lipase 209 and 171, respectively. PHYSICAL EXAMINATION: Cardiovascular: S1-S2 heard. No murmurs, gallops, rubs appreciated. Respiratory: Coarse breath sounds bilaterally. Gastrointestinal: Abdomen is soft and nondistended. Positive bowel sounds. Extremities: The patient continues to have some edema, though it is improved. 1+ pitting edema x4. ASSESSMENT AND PLAN: 1. 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 No plans for any further systemic treatment at this time. Patient had brain metastasis and is status post radiation treatment. 2. Pain. Still working on trying find a medication that the patient can take via PEG tube that will be effective in controlling his pain. We will go ahead and increase Dilaudid to 4 mg q.4 hours. Discussed with the patient the need to try the PO Dilaudid versus the IV Dilaudid. Also discussed with nursing staff to continue to encourage patient to try the Dilaudid via his PEG tube. 3. Pancreatitis. This seems to be slowly improving. Advancing diet as tolerated. Dictated by SHAHRZDA Post for Naa Mendez MD cc: MD Sherif Scruggs MD I have seen and examined the patient and reviewed the chart. I agree with above assessment and plan. Pain control and palliative care on discharge. Naa Mendez MD [facility]
--- NOTE | 2016-12-30 12:43 | DISCHARGE SUMMARY ---
ADMISSION DATE: 12/22/2016 DISCHARGE DATE: 12/30/2016 FINAL DISCHARGE DIAGNOSES: 1. Acute pancreatitis. 2. Metastatic lung cancer with metastasis to the brain, liver, pancreas and adrenal gland, and possibly to the kidneys. 3. Chronic obstructive pulmonary disease. 4. Chronic low back pain. 5. Benign prostatic hypertrophy. 6. Anxiety. 7. Situational depression. HISTORY OF PRESENT ILLNESS: Mr. Lr is a 66-year-old white gentleman admitted with some nausea, vomiting, and abdominal pain. He was not able to keep anything by mouth. The patient was instructed to come to the emergency room. His oncologist was concerned about his metastasis to the brain. CT scan of the brain actually revealed regression of the size of metastasis and vasogenic edema. The patient's amylase and lipase were elevated. The patient underwent CT scan of the abdomen and pelvis which did reveal multiple metastatic lesion in the liver, pancreas, kidneys and adrenal gland. The patient was symptomatic and we decided to admit the patient for further care. The patient was treated with IV fluids, pain management, steroids, and symptomatic treatment. His clinical condition gradually improved. The patient is doing better. Overall prognosis is poor. The patient is tolerating food well. His pain is under better control. No recent seizure-type episode. Oncologist discussed with the patient and also I did. The patient was initially agreeable for palliative care. I did discuss with him the aggressive nature of his disease, poor prognosis, discussed about hospice. The patient understood and agreed and I am going to send him home on hospice. I did explain to the patient hospice is terminal care where the goal is to keep him comfortable and make is final journey as painless as possible. The patient understood and agreed. The patient had hospice evaluation done yesterday and he was in agreement and I am going to discharge the patient home on hospice today. The patient was started on Dilaudid tablet. The patient claims that gave him much more pain relief. I am going to stop his [place] and oxycodone. The patient is tolerating food well. His lipase yesterday was minimally elevated. Clinically patient is doing better. No nausea, vomiting. He does have good bowel movement and I am planning to discharge patient home today. OBJECTIVE: Vital Signs: Reviewed. Lungs: Bibasilar crepitations. Cardiovascular: S1 and S2 heard. Abdomen: Soft, globular. Bowel sounds present. Patient does have PEG tube. Extremities: No cyanosis, clubbing. No acute DVT. MANAGER TRANSPORTATION: Alert, awake, able to move all 4 limbs. IMAGING STUDIES: His CT scan of the abdomen and pelvis revealed scattered hepatic pancreatic mesenteric renal and right adrenal metastasis. Abdominal x-ray revealed no acute disease. The patient did have constipation. Brain MRI did reveal multiple metastases and interval improvement with decreased surrounding edema. LABORATORY DATA: Lab data done yesterday amylase was 209, lipase 171 which is improving. I am not sure how much is due to his metastasis and surrounding inflammation. On CT scan the pancreas did not show significant inflammation. His alkaline phosphatase was 94. Total bilirubin was normal. Electrolytes done yesterday, potassium was 5.2, BUN was 16, creatinine 0.9. CBC done on hemoglobin 11.1, hematocrit 34.2. Urinalysis done on admission was benign. DISPOSITION: Overall the patient received maximum benefit of hospitalization. I am planning to discharge patient home today. Overall discharge condition satisfactory. DISCHARGE INSTRUCTIONS: The patient will stay dexamethasone for a few days. Lexapro. Continue home medications. He will stay on his Keppra. The patient will be followed up by hospice doctor. cc: Sherif Islas MD
== END 2016-12-30 11:29 | disposition hospice, home (50) ==
LOC: ED 08:59 → EDIPHOLD 12:55 → 3N 15:16
PROVIDERS: ADMIT Internal Medicine; ATTEND Internal Medicine